=== PATIENT | male | born 1955 | race American Indian/Alaskan Native ===

== ENCOUNTER 2020-07-05 05:22 | Day surgery (SDC) | payer OTHER ==
[2020-07-04 18:13] VITALS: BMI 25.8
--- NOTE | 2020-07-05 07:38 | HP ---
History & Physical Update - History History: No Change - Physical Physical: No Change - Assessment Assessment: No Change - Plan Plan: No Change
--- NOTE | 2020-07-05 07:39 | OP ---
Operative Note - Note: Operative Date: 07/05/20 Pre-Operative Diagnosis: R renal calculi Operation: R ureteroscopic laser lithotripsy and JJ stent insertion Findings: R renal calculi Post-Operative Diagnosis: Same as Pre-op Surgeon: Manohar Watt Anesthesiologist/STEWARD/[employer]: Amol Jenkins Anesthesia: General Estimated Blood Loss (mls): 0 Drains & Tubes with Location: 6 fr 26 cm R JJ stent Operative Report Dictated: Yes
[2020-07-05] MEDS ORDERED: ceFAZolin SODIUM 1 GM VIAL IVPB ONE (10:22)
[2020-07-05] MEDS ORDERED: MIDAZOLAM HCL 2 MG/2 ML SINGLE DOSE VIAL ONE (10:30)
[2020-07-05] MEDS ORDERED: ROCURONIUM BROMIDE 50 MG/5 ML SYRINGE ONE (10:30)
[2020-07-05] MEDS ORDERED: PROPOFOL 20 ML ONE (10:30)
[2020-07-05] MEDS ORDERED: NEOSTIGMINE METHYLSULFATE 0.5 MG/1 ML - 10 ML MDV ONE (11:05)
[2020-07-05] MEDS ORDERED: GLYCOPYRROLATE 0.2 MG/1 ML VIAL ONE ×2 (11:05)
[2020-07-05] MEDS ORDERED: ONDANSETRON 4 MG/2 ML VIAL IVPUSH PRN (11:44)
[2020-07-05] MEDS ORDERED: oxyCODONE HCL 5 MG TABLET PO PRN (11:44)
[2020-07-05] MEDS ORDERED: LACTATED RINGERS SOLUTION 1,000 ML IV SCH (11:45)
[2020-07-05] MEDS ORDERED: oxyCODONE HCL 5 MG TABLET ONE (13:53)
--- NOTE | 2020-07-05 13:55 | OP ---
DATE OF OPERATION: 07/05/2020 PREOPERATIVE DIAGNOSIS: Right renal calculus. POSTOPERATIVE DIAGNOSIS: Right renal calculus. PROCEDURE: Right ureteroscopic laser lithotripsy, right double-J stent insertion. SURGEON: Manohar Atkinson MD BENEFIT SPECIALIST: None. ANESTHESIA: General via endotracheal tube. ANESTHESIOLOGIST: Aoml Jenkins MD SPECIMENS: Right renal calculus. CULTURES: None. DRAINS: A 6-Sinhala 26-cm right double-J stent. ESTIMATED BLOOD LOSS: None. COMPLICATIONS: None. DESCRIPTION OF PROCEDURE: Patient was brought into the operating room, placed on the operating table in supine position. After administration of general anesthesia via endotracheal tube, intravenous antibiotics were administered. Sequential compression devices were placed. Patient placed in dorsal lithotomy position. The genitals and perineum were prepped and draped in the usual sterile manner. A 22-Sinhala cystoscope was inserted into the bladder under direct vision. Anterior and posterior urethra was normal. The bladder was entered. Urine was evacuated. Cystoscopy was performed. This demonstrated no foreign bodies, tumors, stones, inflammation. Both ureteral orifices were in their usual location with clear efflux bilaterally. Right ureteral orifice was cannulated with a 0.038 guidewire, advanced to the level of the right renal pelvis under fluoroscopic guidance. The dual-lumen catheter was inserted, a retrograde pyelogram was done, demonstrated a bifid collecting system and small filling defect in the middle calyx. Now a Super Stiff guidewire was inserted, dual-lumen catheter was removed. Ureteral access sheath was now inserted with the navigator up to the renal pelvis. Now the flexible ureteroscope was inserted up to the level of the kidney. Pyeloscopy was done. A right middle calyceal calculus was identified, and using the 200-micron laser fiber, laser lithotripsy was done until it was fragmented into small enough piece to be basketed, which was then done. It was basketed and removed. Reinspection of the entire renal collecting system demonstrated no additional stones, no bleeding. Ureteroscope was removed, cystoscope backloaded. Retrograde pyelogram was done, demonstrated no additional stones, no extravasation of contrast. Now 6-Sinhala 26-cm right double-J stent was inserted over the guidewire under direct visual and fluoroscopic guidance, leaving 1 coil in the renal pelvis and 1 coil in the bladder. Tolerated the procedure well. Bladder was emptied. The stent was secured to the penis with a suture and a Tegaderm. Was transferred to the recovery room in stable condition, to be followed up in the office in 2 days for stent removal. MANOHAR ATKINSON M.D. [id number]
[2020-07-05 16:23] VITALS: BP 149/72; PULSE 69; TEMP 97.1
--- NOTE | 2020-07-06 18:44 | PATH ---
Surgical Pathology Report Patient Name: HARDEEP CALIX Med. Rec. #: [id number] /Age/Gender: 1955 (Age: 65) / M Account: [id number] Location: [facility] SURGICAL Taken: 07/04/2020 Received: 07/05/2020 Reported: 07/06/2020 Physicians: Manohar Watt M.D. Specimen(s) Received KIDNEY STONE Clinical History Calculus of ureter Final Diagnosis KIDNEY STONE, REMOVAL: RENAL CALCULI. MACROSCOPIC DIAGNOSIS. Electronically Signed Leticia Delatorre M.D. Gross Description Received fresh labeled "kidney stone," is a 0.3 cm in greatest dimension smiley mims, irregular calculus which is sent for chemical analysis. /07/05/2020 saudi/07/05/2020
[2020-07-15 13:59] LABS: CA OXALATE MONOHYDR. 80; SIZE 3X2 mm; WEIGHT 17 mg
== END 2020-07-05 15:10 | disposition home or self-care (01) ==
LOC: JASU-SURG 05:22
PROVIDERS: ATTEND Urology
PROC: 0TF38ZZ Fragmentation in Right Kidney Pelvis, Via Natural or Artificial Opening Endoscopic (ICD-10-PCS; principal; 2020-07-05 09:00)
PROC: 0T768DZ Dilation of Right Ureter with Intraluminal Device, Via Natural or Artificial Opening Endoscopic (ICD-10-PCS; 2020-07-05 09:00)
DX: N20.0 Calculus of kidney (principal); I10 Essential (primary) hypertension; E11.9 Type 2 diabetes mellitus without complications; Z79.84 Long term (current) use of oral hypoglycemic drugs
CPT/HCPCS: 36415; 76000-TC-FY; 82360; 82962; 88300-TC; 94760

== ENCOUNTER 2020-07-06 11:57 | Inpatient (IN) | payer OTHER ==
[2020-07-06] MEDS ORDERED: ACETAMINOPHEN 1000 MG/100 ML VIAL (NON FORMULARY) IVPB ONE (13:02)
[2020-07-06] MEDS ORDERED: SODIUM CHLORIDE 1,000 ML IV STA ×2 (13:02→17:25)
[2020-07-06] MEDS ORDERED: ACETAMINOPHEN INJECTION 100 ML IVPB ONE (13:28)
[2020-07-06 14:03] LABS: BASO % 0.2 % (0-2.0); HEMATOCRIT 39.2 % (35.4-49); HEMOGLOBIN 12.8 GM/dL (11.7-16.9); LYMPH % 2.5 % (8-40); MCH 27.1 pg (25.7-33.7); MCHC 32.6 g/dl (32.0-35.9); MEAN CELL VOLUME 83.1 fl (80-96); MONO % 8.3 % (3.8-10.2); PLATELET COUNT 278 K/MM3 (134-434); RBC 4.71 M/mm3 (4.00-5.60); RDW 15.2 % (11.9-15.9)
[2020-07-06 14:05] LABS: WHITE BLOOD COUNT 31.1 K/mm3 (4.0-10.0)
[2020-07-06] MEDS ORDERED: PIPERACILLIN/TAZOB 4.5 GM 4.5 GM/100 ML BAG IVPB ONE ×2 (14:08→14:21)
[2020-07-06] MEDS ORDERED: VANCOMYCIN 1 GM in D5W (PRE-DOCKED) 1,000 MG/250 ML IVPB ONE (14:08)
--- NOTE | 2020-07-06 14:09 | PDOC ---
Documentation entered by Jeff Green SCRIBE, acting as scribe for Raymond Chase MD. Raymond Chase MD: This documentation has been prepared by the ericibe, Jeff Green SCRIBE, under my direction and personally reviewed by me in its entirety. I confirm that the documentation accurately reflects all work, treatment, procedures, and medical decision making performed by me. 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 The patient is alert but cannot speak due to stroke, so his at bedside served as a historian. He was found on the floor after the fall last night and his family helped him stand. The reports had a fever (temperature at home 100.7) and headache that began last night. notes that he has been coughing as well. Of note, pt is POD #1 s/p right ureteroscopic laser lithotripsy and JJ stent insertion for a right renal calculi by Dr. Watt. The patient denies chest/abdominal/back pain, and shortness of breath. Denies chills, nausea, vomiting, and/or any GI symptoms. Denies any other symptoms. Allergies: shellfish derived Surgical Hx: ESWL R, BPH, R ureteroscopic laser lithotripsy and JJ stent inserti on PCP: Dr. Barrientos Urologist: Dr. Watt Past History - Medical History Allergies/Adverse Reactions: Allergies Allergy/AdvReac Type Severity Reaction Status Date / Time shellfish derived Allergy Verified 07/06/20 12:09 Home Medications: Ambulatory Orders Amlodipine Besylate 10 mg PO DAILY 03/01/20 Aspirin 81 mg PO DAILY 03/01/20 Calcium Carbonate [Calcium] 500 mg PO DAILY 03/01/20 Cholecalciferol (Vitamin D3) [Vitamin D -] 400 unit PO DAILY 03/01/20 Metformin HCl [Glucophage] 500 mg PO BID 03/01/20 Bypro-3 Fatty Acids/Fish Oil [Fish Oil 1,000 mg Capsule] 1 each PO DAILY 03/01/20 Simvastatin 20 mg PO HS 03/01/20 Tamsulosin HCl 0.4 mg PO DAILY 03/01/20 Dextrin [Fiber] 350 gm PO DAILY 07/04/20 Docusate Sodium [Colace] 100 mg PO DAILY 07/04/20 Carvedilol [Coreg -] 12.5 mg PO BID #60 tablet 07/20/20 Chlorthalidone [Hygroton -] 12.5 mg PO DAILY #30 tablet 07/20/20 Anemia: No Asthma: No Cancer: No Cardiac Disorders: No CVA: Yes (2013 RIGHT SIDE WEAKNESS) COPD: No CHF: No Dementia: No Diabetes: Yes (NIDDM) GI Disorders: No Disorders: Yes (KIDNEY STONES) HTN: Yes Hypercholesterolemia: Yes Liver Disease: No Seizures: No Thyroid Disease: No - Psycho-Social/Smoking History Smoking History: Never smoked Have you smoked in the past 12 months: No Information on smoking cessation initiated: No - Substance Abuse Hx (Audit-C & DAST Scrn) How often the patient has a drink containing alcohol: Never Score: In Men: 4 or > Positive; In Women: 3 or > Positive: 0 Screen Result (Pos requires Nsg. Audit-10AR): Negative In the last yr the pt used illegal drug/Rx for NonMed reason: No Score: Yes response is considered Positive: 0 Screen Result (Positive result requires Nsg. DAST-10): Negative Review of Systems - Review of Systems Able to Perform ROS?: Yes Comments:: 07/06/20 13:10 GENERAL/CONSTITUTIONAL: + fever, weakness HEAD, EYES, EARS, NOSE AND THROAT: +headache No change in vision. No ear pain or discharge. CARDIOVASCULAR: + chest pain no shortness of breath, no loss of consciousness RESPIRATORY: + cough, No wheezing, or hemoptysis. GASTROINTESTINAL: No nausea, vomiting, diarrhea or constipation. GENITOURINARY: No dysuria, frequency. MUSCULOSKELETAL: No joint or muscle swelling or pain. No neck or back pain. SKIN: No rash NEUROLOGIC: No vertigo, no change in strength/sensation. ENDOCRINE: No increased thirst. No abnormal weight change. HEMATOLOGIC/LYMPHATIC: No anemia, easy bleeding, or history of blood clots. ALLERGIC/IMMUNOLOGIC: No hives or skin allergy. *Physical Exam - Vital Signs Last Vital Signs Temp Pulse Resp BP Pulse Ox 100 F H 94 H 18 105/62 94 L 07/06/20 12:04 07/06/20 12:04 07/06/20 12:04 07/06/20 12:04 07/06/20 12:04 - Physical Exam 07/06/20 12:51 "GENERAL: Awake, alert, and fully oriented, in no acute distress. HEAD: No signs of trauma EYES: PERRLA, EOMI, sclera anicteric, conjunctiva clear ENT: Auricles normal inspection, hearing grossly normal, nares patent, orop harynx clear without exudates. Moist mucosa NECK: Nontender, no stepoffs, Normal ROM, supple, no lymphadenopathy, JVD, or masses LUNGS: Breath sounds equal, clear to auscultation bilaterally. No wheezes, and no crackles HEART: Regular rate and rhythm, normal S1 and S2, no murmurs, rubs or gallops ABDOMEN: Soft, nontender, normoactive bowel sounds. No guarding, no rebound. No masses EXTREMITIES: Normal range of motion, no edema. No clubbing or cyanosis. No cords, erythema, or tenderness NEUROLOGICAL: Cranial nerves II through XII intact. 5/5 strength and sensation in all extremities SKIN: Warm, Dry, normal turgor, no rashes or lesions noted." ED Treatment Course - LABORATORY CBC & Chemistry Diagram: 07/20/20 06:52 07/20/20 13:16 Medical Decision Making - Critical Care Time Total Critical Care Time (minutes): 30 Critical Care Statement: The care of this patient involved high complexity decision making to prevent further life threatening deterioration of the patient's condition and/or to evaluate & treat vital organ system(s) failure or risk of failure. - Medical Decision Making 07/06/20 14:18 65 M with weakness and fall last night. Febrile in ED, with new hypoxia. Suspect PNA. - Labs - Cultures - CXR - CT head/c-spine - CTAP 07/06/20 19:06 Labs notable for WBC 33 UA consistent with UTI Consult placed for Dr. Watt Pt started on vanc/zosyn 07/06/20 19:16 Pt admitted to hospitalist Discharge - Discharge Information Problems reviewed: Yes Clinical Impression/Diagnosis: Sepsis, UTI (urinary tract infection) Condition: Improved Disposition: VNS/HOME HEALTH CARE - Admission Yes - Follow up/Referral - Patient Discharge Instructions - Post Discharge Activity
[2020-07-06 14:10] LABS: INR 1.24 (0.83-1.09); PROTHROMBIN TIME (PATIENT) 14.7 SEC (9.7-13.0)
[2020-07-06 14:12] LABS: ACTIVATED PTT 29.7 SECONDS (25.2-36.5)
[2020-07-06] MEDS ORDERED: VANCOMYCIN 1 GRAM (PRE-DOCKED) 1,000 MG/250 ML BAG IVPB ONE (14:21)
[2020-07-06 14:34] LABS: BILIRUBIN,TOTAL 0.4 mg/dL (0.2-1); BLOOD UREA NITROGEN 21.3 mg/dL (7-18); CALCIUM 9.4 mg/dL (8.5-10.1); CREATININE 2.1 mg/dL (0.55-1.3); POTASSIUM 4.6 mmol/L (3.5-5.1); TOT PROT 6.6 g/dl (6.4-8.2)
[2020-07-06 18:15] LABS: EPI CELLS 11 /uL (0-25.1); HYALINE CASTS 3 /uL (0-3.1); PH,URINE 5.5 (5.0-8.0); URINE APPEARANCE TURBID; URINE BACTERIA 158 /uL (0-1359); URINE BILIRUBIN NEGATIVE (NEGATIVE); URINE COLOR YELLOW; URINE GLUCOSE (UA) TRACE (NEGATIVE); URINE KETONE TRACE (NEGATIVE); URINE LEUK ESTERASE 2+ (NEGATIVE); URINE NITRITE NEGATIVE (NEGATIVE); URINE PROTEIN 4+ (NEGATIVE); URINE RBC 542 /uL (0-23.9); URINE UROBILINOGEN 0.2 mg/dL (0.2-1.0); URINE WBC 1863 /uL (0-25.8)
--- NOTE | 2020-07-06 19:55 | PN ---
Teaching Attending Note Name of Resident: Divine Hunt ATTENDING PHYSICIAN STATEMENT I saw and evaluated the patient. I reviewed the resident's note and discussed the case with the resident. I agree with the resident's findings and plan as documented. SUBJECTIVE: 65yoM with h/o CVA 2013 with residual right sided hemiparesis and expressive aphasia, kidney stones, HTN, HLD, T2DM, and BPH currently POD1 from lithotripsy and right double J ureteral stent insertion who presents with fever, generalized weakness, and unwitnessed fall. Patient underwent uncomplicated procedure 07/[address] Watt. That evening he developed a temperature of 100.7F and per he has been coughing and had a headache as well. Patient is currently complaining of generalized body aches including chest pain and suprapubic pain. Nods yes that he has been experiencing palpitations but none currently. Denies nausea, vomiting, diarrhea, SOB. Labs notable for WBC 31.1 with 5% bands, creatinine 2.1 from baseline which appears to be around 1.1, and lactic acid 3.1. UA positive for leukocyte esterases and pyuria. CT abd/pelvis showed right ureteral stent, mild-moderate right nephromegaly and minimal hydronephrosis with prenephric soft tissue stranding, and nonobstructing renal calculi. CT chest showed bibasilar atelectasis vs scarring, RML nodule, and prominent mediastinal lymph node but no definite consolidation. CT head and C-spine without acute findings. ED consulted Dr. Watt. Patient received 2L NS bolus and empiric vancomycin and Zosyn. OBJECTIVE: Vital Signs - 24 hr 07/06/20 12:04 Temperature 100 F H Pulse Rate 94 H Respiratory 18 Rate Blood Pressure 105/62 O2 Sat by Pulse 94 L Oximetry (%) EXAM Gen: awake, alert, uncomfortable appearing but in no acute distress HEENT: NC/AT CV: RRR, tachycardic, no MRG. Chest pain reproducible to palpation Resp: Faint crackle left base. Tachypneic without accessory muscle use Abd: Distended, mild tenderness to palpation worst in suprapubic area, no rebound/guarding Ext: no edema Neuro: Expressive aphasia, nods yes/no appropriately to direct questions. Follows commands. Strength 0/5 RUE and RLE, 4/5 left extremities Psych: appropriate mood/affect Laboratory Results - last 24 hr 07/06/20 07/06/20 07/06/20 13:06 13:18 13:18 WBC RBC Hgb Hct MCV MCH MCHC RDW Plt Count MPV Absolute Neuts (auto) Total Counted Neutrophils % Neutrophils % (Manual) Band Neutrophils % Lymphocytes % Lymphocytes % (Manual) Monocytes % Monocytes % (Manual) Eosinophils % Basophils % Myelocytes % (Man) Nucleated RBC % PT with INR 14.70 H INR 1.24 H PTT (Actin FS) 29.7 Sodium Potassium Chloride Carbon Dioxide Anion Gap BUN Creatinine Est GFR (CKD-EPI)AfAm Est GFR (CKD-EPI)NonAf Random Glucose Lactic Acid 3.8 H* Calcium Total Bilirubin AST ALT Alkaline Phosphatase Troponin I < 0.02 Total Protein Albumin Urine Color Urine Appearance Urine pH Ur Specific [place] Urine Protein Urine Glucose (UA) Urine Ketones Urine Blood Urine Nitrite Urine Bilirubin Urine Urobilinogen Ur Leukocyte Esterase Urine WBC (Auto) Urine RBC (Auto) Urine Casts (Auto) U Epithel Cells (Auto) Urine Bacteria (Auto) 07/06/20 07/06/20 07/06/20 13:18 13:18 17:00 WBC 31.1 H* RBC 4.71 Hgb 12.8 Hct 39.2 MCV 83.1 MCH 27.1 MCHC 32.6 RDW 15.2 Plt Count 278 MPV 8.0 Absolute Neuts (auto) 27.7 H Total Counted 100 Neutrophils % 89.0 H Neutrophils % (Manual) 75.0 Band Neutrophils % 5.0 Lymphocytes % 2.5 L Lymphocytes % (Manual) 4.0 L Monocytes % 8.3 Monocytes % (Manual) 10 Eosinophils % 0.0 Basophils % 0.2 Myelocytes % (Man) 6 H Nucleated RBC % 0 PT with INR INR PTT (Actin FS) Sodium 135 L Potassium 4.6 Chloride 100 Carbon Dioxide 24 Anion Gap 11 BUN 21.3 H Creatinine 2.1 H Est GFR (CKD-EPI)AfAm 36.65 Est GFR (CKD-EPI)NonAf 31.62 Random Glucose 152 H Lactic Acid 3.1 H* Calcium 9.4 Total Bilirubin 0.4 AST 17 ALT 17 Alkaline Phosphatase 79 Troponin I Total Protein 6.6 Albumin 3.0 L Urine Color Urine Appearance Urine pH Ur Specific [place] Urine Protein Urine Glucose (UA) Urine Ketones Urine Blood Urine Nitrite Urine Bilirubin Urine Urobilinogen Ur Leukocyte Esterase Urine WBC (Auto) Urine RBC (Auto) Urine Casts (Auto) U Epithel Cells (Auto) Urine Bacteria (Auto) 07/06/20 17:15 WBC RBC Hgb Hct MCV MCH MCHC RDW Plt Count MPV Absolute Neuts (auto) Total Counted Neutrophils % Neutrophils % (Manual) Band Neutrophils % Lymphocytes % Lymphocytes % (Manual) Monocytes % Monocytes % (Manual) Eosinophils % Basophils % Myelocytes % (Man) Nucleated RBC % PT with INR INR PTT (Actin FS) Sodium Potassium Chloride Carbon Dioxide Anion Gap BUN Creatinine Est GFR (CKD-EPI)AfAm Est GFR (CKD-EPI)NonAf Random Glucose Lactic Acid Calcium Total Bilirubin AST ALT Alkaline Phosphatase Troponin I Total Protein Albumin Urine Color Yellow Urine Appearance Turbid Urine pH 5.5 Ur Specific [place] 1.021 Urine Protein 4+ H Urine Glucose (UA) Trace Urine Ketones Trace H Urine Blood 3+ H Urine Nitrite Negative Urine Bilirubin Negative Urine Urobilinogen 0.2 Ur Leukocyte Esterase 2+ H Urine WBC (Auto) 1863 Urine RBC (Auto) 542 Urine Casts (Auto) 3 U Epithel Cells (Auto) 11 Urine Bacteria (Auto) 158 Imaging and EKG reviewed in chart ASSESSMENT AND PLAN: 65yoM with h/o CVA 2013 with residual right sided weakness and aphasia, kidney stones, HTN, HLD, T2DM, and BPH currently POD1 from lithotripsy and right double J ureteral stent insertion who presents with fever, generalized weakness, and unwitnessed fall admitted with severe sepsis likely secondary to complicated UTI. Severe sepsis secondary to complicated UTI Fever, leukocytosis, WALI, elevated lactic 3.8 -> 3.1 s/p lithotripsy with ureteral stent insertion 07/05 UA grossly positive Medication list includes Bactrim, unclear duration s/p 2L NS bolus and vancomycin and Zosyn in ED - f/u urine and blood cultures - continue empiric Zosyn, vancomycin - rpt lactic - continue hydration - urology consult appreciated - ID consult WALI Baseline creatinine appears to be around 1.1, currently 2.1 In setting of severe sepsis as above as well as recent urologic procedure CT showing mild right hydronephrosis but no obstructing stones - hold nephrotoxic meds - monitor UOP - trend renal function Generalized weakness, unwitnessed fall In setting of severe sepsis CT head and C-spine without acute findings No new neuro deficits from baseline Given complaint of palpitations, will monitor on telemetry - tele - troponins - PT consult RML lung nodule and mediastinal lymph nodes Incidental finding on CT chest - 0.3cm RML pulmonary nodule - 3mo f/u CT recommended by radiology HTN: Hold amlodipine for now, resume as tolerated. Continue metoprolol. T2DM: hold oral medications; ISS BPH: continue tamsulosin h/o CVA: continue aspirin, simvastatin DVT ppx: heparin subq
--- NOTE | 2020-07-06 20:07 | HP ---
CHIEF COMPLAINT: Unwitnessed fall, fever, chills PCP: Marvin Barrientos HISTORY OF PRESENT ILLNESS: Mr. Glover is a 65 year old man POD1 following uteroscopic laser lithotripsy and stent insertion for R renal calculi, with PMH CVA (non-verbal), hypertension, NIDDM who presents to ED after unwitnessed fall yesterday night. Patient's reports he was febrile (100.7). Patient communicating via gestures -- communicating that he began experiencing chills and diffuse body aches after the recent procedure, along with weakness, which led to an unwitnessed fall last night. This prompted his to call EMS. Patient reports 2 episodes of urinary incontinence. He denies headache, chest pain, palpitations, abdominal pain, vomiting, diarrhea. ER course was notable for: (1) Lactic acid 3.8 --> trended down to 3.1 (2) Leukocytosis (3) WALI (Cr. 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 ; residual right sided weakness ambulating with walker at baseline PAST SURGICAL HISTORY: POD1 following uteroscopic laser lithotripsy with stent placement Kidney stones Hypertension NIDDM Social History: Smoking: NO Alcohol:NO Drugs: NO Allergies shellfish derived Allergy (Verified 07/06/20 12:09) HOME MEDICATIONS: Home Medications Medication Instructions Recorded Amlodipine Besylate 10 mg PO DAILY 03/01/20 Aspirin 81 mg PO DAILY 03/01/20 Calcium Carbonate [Calcium] 500 mg PO DAILY 03/01/20 Cholecalciferol (Vitamin D3) 400 unit PO DAILY 03/01/20 [Vitamin D3 -] Losartan Potassium 50 mg PO DAILY 03/01/20 Metformin HCl [Glucophage] 500 mg PO BID 03/01/20 Metoprolol Succinate 50 mg PO DAILY 03/01/20 Nortriptyline HCl [Pamelor -] 25 mg PO DAILY 03/01/20 [place]-3 Fatty Acids/Fish Oil [Fish 1 each PO DAILY 03/01/20 Oil 1,000 mg Capsule] Pantoprazole Sodium [Protonix -] 20 mg PO DAILY 03/01/20 Simvastatin 20 mg PO HS 03/01/20 Tamsulosin HCl 0.4 mg PO DAILY 03/01/20 Oxycodone HCl/Acetaminophen 1 each PO Q4H PRN 7 Days #42 03/29/20 [Oxycodon-Acetaminophen 7.5-325] tablet MDD 6 Dextrin [Fiber] 350 gm PO DAILY 07/04/20 Docusate Sodium [Colace] 100 mg PO DAILY 07/04/20 Ketorolac Tromethamine [Toradol] 10 mg PO Q6H #28 tablet 07/05/20 Sulfamethoxazole/Trimethoprim 1 tab PO BID #14 tablet 07/05/20 [Bactrim Ds -] REVIEW OF SYSTEMS See HPI PHYSICAL EXAMINATION Vital Signs - 24 hr 07/06/20 12:04 Temperature 100 F H Pulse Rate 94 H Respiratory 18 Rate Blood Pressure 105/62 O2 Sat by Pulse 94 L Oximetry (%) GENERAL: Awake, alert, and fully oriented, generalized body shakes HEAD: Normal with no signs of trauma. EYES: Pupils equal, round and reactive to light, extraocular movements intact, sclera anicteric, conjunctiva clear. EARS, NOSE, THROAT: Ears normal, nares patent, oropharynx clear without exudates. Moist mucous membranes. NECK: Normal range of motion, supple without lymphadenopathy LUNGS: Breath sounds equal, clear to auscultation bilaterally. No wheezes, and no crackles. Tachypnic with accessory muscle use. HEART: Regular rate and rhythm, normal S1 and S2 without murmur, rub or gallop. ABDOMEN: Distended, mild tenderness to palpation across all quadrants. normoactive bowel sounds, no guarding, no rebound, no masses. MUSCULOSKELETAL: Normal range of motion at all joints. No bony deformities or tenderness. No CVA tenderness. NEUROLOGICAL: Alert, communicating via gestures PSYCHIATRIC: Cooperative. Good eye contact. Appropriate mood and affect. SKIN: Warm, dry, normal turgor, no rashes or lesions noted Laboratory Results - last 24 hr 07/06/20 07/06/20 07/06/20 13:06 13:18 13:18 WBC RBC Hgb Hct MCV MCH MCHC RDW Plt Count MPV Absolute Neuts (auto) Total Counted Neutrophils % Neutrophils % (Manual) Band Neutrophils % Lymphocytes % Lymphocytes % (Manual) Monocytes % Monocytes % (Manual) Eosinophils % Basophils % Myelocytes % (Man) Nucleated RBC % PT with INR 14.70 H INR 1.24 H PTT (Actin FS) 29.7 Sodium Potassium Chloride Carbon Dioxide Anion Gap BUN Creatinine Est GFR (CKD-EPI)AfAm Est GFR (CKD-EPI)NonAf Random Glucose Lactic Acid 3.8 H* Calcium Total Bilirubin AST ALT Alkaline Phosphatase Troponin I < 0.02 Total Protein Albumin Urine Color Urine Appearance Urine pH Ur Specific [place] Urine Protein Urine Glucose (UA) Urine Ketones Urine Blood Urine Nitrite Urine Bilirubin Urine Urobilinogen Ur Leukocyte Esterase Urine WBC (Auto) Urine RBC (Auto) Urine Casts (Auto) U Epithel Cells (Auto) Urine Bacteria (Auto) 07/06/20 07/06/20 07/06/20 13:18 13:18 17:00 WBC 31.1 H* RBC 4.71 Hgb 12.8 Hct 39.2 MCV 83.1 MCH 27.1 MCHC 32.6 RDW 15.2 Plt Count 278 MPV 8.0 Absolute Neuts (auto) 27.7 H Total Counted 100 Neutrophils % 89.0 H Neutrophils % (Manual) 75.0 Band Neutrophils % 5.0 Lymphocytes % 2.5 L Lymphocytes % (Manual) 4.0 L Monocytes % 8.3 Monocytes % (Manual) 10 Eosinophils % 0.0 Basophils % 0.2 Myelocytes % (Man) 6 H Nucleated RBC % 0 PT with INR INR PTT (Actin FS) Sodium 135 L Potassium 4.6 Chloride 100 Carbon Dioxide 24 Anion Gap 11 BUN 21.3 H Creatinine 2.1 H Est GFR (CKD-EPI)AfAm 36.65 Est GFR (CKD-EPI)NonAf 31.62 Random Glucose 152 H Lactic Acid 3.1 H* Calcium 9.4 Total Bilirubin 0.4 AST 17 ALT 17 Alkaline Phosphatase 79 Troponin I Total Protein 6.6 Albumin 3.0 L Urine Color Urine Appearance Urine pH Ur Specific [place] Urine Protein Urine Glucose (UA) Urine Ketones Urine Blood Urine Nitrite Urine Bilirubin Urine Urobilinogen Ur Leukocyte Esterase Urine WBC (Auto) Urine RBC (Auto) Urine Casts (Auto) U Epithel Cells (Auto) Urine Bacteria (Auto) 07/06/20 17:15 WBC RBC Hgb Hct MCV MCH MCHC RDW Plt Count MPV Absolute Neuts (auto) Total Counted Neutrophils % Neutrophils % (Manual) Band Neutrophils % Lymphocytes % Lymphocytes % (Manual) Monocytes % Monocytes % (Manual) Eosinophils % Basophils % Myelocytes % (Man) Nucleated RBC % PT with INR INR PTT (Actin FS) Sodium Potassium Chloride Carbon Dioxide Anion Gap BUN Creatinine Est GFR (CKD-EPI)AfAm Est GFR (CKD-EPI)NonAf Random Glucose Lactic Acid Calcium Total Bilirubin AST ALT Alkaline Phosphatase Troponin I Total Protein Albumin Urine Color Yellow Urine Appearance Turbid Urine pH 5.5 Ur Specific [place] 1.021 Urine Protein 4+ H Urine Glucose (UA) Trace Urine Ketones Trace H Urine Blood 3+ H Urine Nitrite Negative Urine Bilirubin Negative Urine Urobilinogen 0.2 Ur Leukocyte Esterase 2+ H Urine WBC (Auto) 1863 Urine RBC (Auto) 542 Urine Casts (Auto) 3 U Epithel Cells (Auto) 11 Urine Bacteria (Auto) 158 ASSESSMENT/PLAN: Mr. Glover is a 65 year old man with PMH CVA (as a result non-verbal), htn, diabetes, POD1 following uteroscopic laser lithotripsy with stent insertion for R renal calculi who presents after unwitnessed fall with fever, leukocytosis, elevated lactic acid, and UTI/ imaging consistent with pyelonephritis. # Severe sepsis secondary to UTI - Presented with fever, leukocytosis, tachycardia - Lactic trending down (last lab at 1.7) - Started on Vanc Zosyn in ED - ID consulted - Awaiting blood and urine culture # Unwitnessed fall - Mechanical vs. Syncope - Admitted to telemetry - Consider ECHO # WALI - Creatinine elevated at 2.1 - Likely combination of pre-renal, intrinsic, and post- renal etiology - Avoid NSAIDS and other nephrotoxic drugs during this admission # Diabetes - Hold metformin during admission - On sliding scale # Incidentally found lung nodule - Found on today's CXT - Advise follow up at discharge DVT prophylaxis: Heparin FEN ns at 100 mls/hr Monitor electrolytes Diabetic/low sodium diet Dispo: admit to telemetry FULL CODE Family Medical History Family History: As Documented Visit type - Medication Review Med list reviewed for High Risk Meds patients 65 and older: Yes - Emergency Visit Emergency Visit: No - New Patient This patient is new to me today: Yes Date on this admission: 07/07/20 - Critical Care Critical Care patient: No ATTENDING PHYSICIAN STATEMENT I saw and evaluated the patient. I reviewed the resident's note and discussed the case with the resident. I agree with the resident's findings and plan as documented. SUBJECTIVE: OBJECTIVE: ASSESSMENT AND PLAN:
[2020-07-06] MEDS: ACETAMINOPHEN 1000 MG/100 ML VIAL (NON FORMULARY) IVPB PRN (22:56)
[2020-07-06] MEDS: INSULIN SLIDING SCALE (NOVOLOG) 1 VIAL SQ SCH (23:01)
[2020-07-06] MEDS: SODIUM CHLORIDE 1,000 ML IV SCH (23:01)
[2020-07-07] MEDS: SODIUM CHLORIDE 1,000 ML IV SCH ×2 (01:22→14:49)
[2020-07-07] MEDS: HEPARIN NA (PORCINE) 5,000 UNITS/ML 1ML VIAL SQ SCH ×3 (06:28→21:22)
[2020-07-07] MEDS: INSULIN SLIDING SCALE (NOVOLOG) 1 VIAL SQ SCH ×4 (06:28→21:23)
[2020-07-07 08:21] LABS: BASO % 0.5 % (0-2.0); HEMOGLOBIN 12.2 GM/dL (11.7-16.9); LYMPH % 2.7 % (8-40); MCH 26.5 pg (25.7-33.7); MCHC 32.2 g/dl (32.0-35.9); MEAN CELL VOLUME 82.5 fl (80-96); MONO % 5.4 % (3.8-10.2); NEUT % 91.4 % (42.8-82.8); PLATELET COUNT 270 K/MM3 (134-434); RDW 15.6 % (11.9-15.9)
[2020-07-07 08:31] LABS: BLOOD UREA NITROGEN 25.6 mg/dL (7-18); CALCIUM 8.2 mg/dL (8.5-10.1); CREATININE 2.2 mg/dL (0.55-1.3); MAGNESIUM 1.8 mg/dL (1.8-2.4); PHOSPHOROUS 3.2 mg/dL (2.5-4.9)
[2020-07-07 10:02] LABS: ANISOCYTOSIS 1+; MACROCYTOSIS 0; PLATELET ESTIMATE NORMAL
--- NOTE | 2020-07-07 10:31 | CON.GU ---
Consult Consult Specialty:: Reason for Consultation:: UTI - History of Present Illness Chief Complaint: fever, body aches History of Present Illness: 65 year old man POD1 following uteroscopic laser lithotripsy and stent insertion for R renal calculi, with PMH CVA (non-verbal), hypertension, NIDDM who presents to ED after unwitnessed fall yesterday night. Patient's reports he was febrile (100.7). Patient communicating via gestures -- communi cating that he began experiencing chills and diffuse body aches after the recent procedure, along with weakness, which led to an unwitnessed fall last night. This prompted his to call EMS. Patient reports 2 episodes of urinary incontinence. He denies headache, chest pain, palpitations, abdominal pain, vomiting, diarrhea. cons req. ER course was notable for: (1) Lactic acid 3.8 --> trended down to 3.1 (2) Leukocytosis (3) WALI (Cr. elevated at 2.1) (4) Urinalysis consistent with UTI (5) CT abdomen pelvis showing stent in place with mild hydronephrosis with perinephric tissue stranding - History Source History Provided By: Family Member, Medical Record - Past Medical History Renal/: Yes: Hematuria, Renal Calculi, UTI - Alcohol/Substance Use Hx Alcohol Use: No - Smoking History Smoking history: Never smoked Have you smoked in the past 12 months: No Home Medications - Allergies Allergies/Adverse Reactions: Allergies Allergy/AdvReac Type Severity Reaction Status Date / Time shellfish derived Allergy Verified 07/06/20 12:09 - Home Medications Home Medications: Ambulatory Orders Amlodipine Besylate 10 mg PO DAILY 03/01/20 Aspirin 81 mg PO DAILY 03/01/20 Calcium Carbonate [Calcium] 500 mg PO DAILY 03/01/20 Cholecalciferol (Vitamin D3) [Vitamin D3 -] 400 unit PO DAILY 03/01/20 Losartan Potassium 50 mg PO DAILY 03/01/20 Metformin HCl [Glucophage] 500 mg PO BID 03/01/20 Metoprolol Succinate 50 mg PO DAILY 03/01/20 Nortriptyline HCl [Pamelor -] 25 mg PO DAILY 03/01/20 [place]-3 Fatty Acids/Fish Oil [Fish Oil 1,000 mg Capsule] 1 each PO DAILY 03/01/20 Pantoprazole Sodium [Protonix -] 20 mg PO DAILY 03/01/20 Simvastatin 20 mg PO HS 03/01/20 Tamsulosin HCl 0.4 mg PO DAILY 03/01/20 Oxycodone HCl/Acetaminophen [Oxycodon-Acetaminophen 7.5-325] 1 each PO Q4H PRN 7 Days #42 tablet MDD 6 03/29/20 Dextrin [Fiber] 350 gm PO DAILY 07/04/20 Docusate Sodium [Colace] 100 mg PO DAILY 07/04/20 Ketorolac Tromethamine [Toradol] 10 mg PO Q6H #28 tablet 07/05/20 Sulfamethoxazole/Trimethoprim [Bactrim Ds -] 1 tab PO BID #14 tablet 07/05/20 Review of Systems - Review of Systems Genitourinary: reports: Flank Pain Physical Exam- Vital Signs: Vital Signs Temperature 98.3 F 07/07/20 06:00 Pulse Rate 118 H 07/07/20 06:00 Respiratory Rate 20 07/07/20 06:00 Blood Pressure 150/76 07/07/20 06:00 O2 Sat by Pulse Oximetry (%) 94 L 07/07/20 06:00 Constitutional: Yes: Well Nourished, No Distress, Calm Gastrointestinal: Yes: WNL, Normal Bowel Sounds, Soft Renal/: Yes: WNL Kidneys: Yes: FLank Pain Right Pelvis: Yes: WNL Testicles: Yes: WNL Scrotum: Yes: WNL Penis: Yes: WNL Prostate Exam: Yes: WNL Labs: CBC, BMP 07/07/20 06:50 07/07/20 06:50 Imaging - Results Cat Scan: Report Reviewed Problem List - Problems (1) Sepsis Assessment/Plan: Ucx, IV abxs Code(s): A41.9 - SEPSIS, UNSPECIFIED ORGANISM (2) UTI (urinary tract infection) Code(s): N39.0 - URINARY TRACT INFECTION, SITE NOT SPECIFIED
[2020-07-07] MEDS ORDERED: PIPERACILLIN/TAZOB 4.5 GM 4.5 GM in DEXTROSE 5%-WATER 100 ML IVPB SCH ×2 (12:30→22:30)
[2020-07-07] MEDS ORDERED: PIPERACILLIN/TAZOBACTAM 4.5 GM VIAL IVPB ONE ×2 (12:39→17:20)
[2020-07-07] MEDS ORDERED: DEXTROSE 5%-WATER 100 ML IVPB ONE ×2 (12:39→17:20)
--- NOTE | 2020-07-07 12:51 | CON.ID ---
Consult Consult Specialty:: infectious disease Referred by:: hospitalist Reason for Consultation:: bacteremia - History of Present Illness Chief Complaint: fever History of Present Illness: s/p fall at home myalgia fever s/p stent on 07/05 received cefazolin during procedure and d/jair on bactrim reports vomiting- last night, none today myalgia flank pain he is alert ate a little bit today no BM for 2 days s/p cva - he is alert and able to make his needs known - History Source History Provided By: Patient, Medical Record Limitations to Obtaining History: Clinical Condition - Past Medical History [employer]: Yes: CVA Cardio/Vascular: Yes: HTN Renal/: Yes: Hematuria, Renal Calculi, UTI Endocrine: Yes: Diabetes Mellitus - Alcohol/Substance Use Hx Alcohol Use: No - Smoking History Smoking history: Never smoked Have you smoked in the past 12 months: No - Social History Usual Living Arrangement: With Spouse ADL: Family Assistance Occupation: ambulates with walker History of Recent Travel: No Home Medications - Allergies Allergies/Adverse Reactions: Allergies Allergy/AdvReac Type Severity Reaction Status Date / Time shellfish derived Allergy Verified 07/06/20 12:09 - Home Medications Home Medications: Ambulatory Orders Amlodipine Besylate 10 mg PO DAILY 03/01/20 Aspirin 81 mg PO DAILY 03/01/20 Calcium Carbonate [Calcium] 500 mg PO DAILY 03/01/20 Cholecalciferol (Vitamin D3) [Vitamin D3 -] 400 unit PO DAILY 03/01/20 Losartan Potassium 50 mg PO DAILY 03/01/20 Metformin HCl [Glucophage] 500 mg PO BID 03/01/20 Metoprolol Succinate 50 mg PO DAILY 03/01/20 Nortriptyline HCl [Pamelor -] 25 mg PO DAILY 03/01/20 [place]-3 Fatty Acids/Fish Oil [Fish Oil 1,000 mg Capsule] 1 each PO DAILY 03/01/20 Pantoprazole Sodium [Protonix -] 20 mg PO DAILY 03/01/20 Simvastatin 20 mg PO HS 03/01/20 Tamsulosin HCl 0.4 mg PO DAILY 03/01/20 Oxycodone HCl/Acetaminophen [Oxycodon-Acetaminophen 7.5-325] 1 each PO Q4H PRN 7 Days #42 tablet MDD 6 03/29/20 Dextrin [Fiber] 350 gm PO DAILY 07/04/20 Docusate Sodium [Colace] 100 mg PO DAILY 07/04/20 Ketorolac Tromethamine [Toradol] 10 mg PO Q6H #28 tablet 07/05/20 Sulfamethoxazole/Trimethoprim [Bactrim Ds -] 1 tab PO BID #14 tablet 07/05/20 Family Medical History Family History: Unable to Obtain Review of Systems - Review of Systems Constitutional: reports: Chills, Fever, Malaise, Weakness Eyes: reports: No Symptoms HENT: reports: No Symptoms Neck: reports: No Symptoms Cardiovascular: reports: No Symptoms. denies: Chest Pain Respiratory: reports: No Symptoms. denies: Cough Gastrointestinal: reports: Constipation, Nausea, Vomiting Genitourinary: reports: Flank Pain Musculoskeletal: reports: Muscle Pain (both thighs) Physical Exam Vital Signs: Vital Signs Temperature 99.4 F 07/07/20 11:10 Pulse Rate 130 H 07/07/20 11:10 Respiratory Rate 20 07/07/20 11:10 Blood Pressure 144/80 07/07/20 11:10 O2 Sat by Pulse Oximetry (%) 94 L 07/07/20 06:00 Constitutional: Yes: Well Nourished, No Distress, Moderate Distress Eyes: Yes: Conjunctiva Clear HENT: Yes: Atraumatic, Normocephalic Neck: Yes: Supple Cardiovascular: Yes: Regular Rate and Rhythm Respiratory: Yes: Regular, CTA Bilaterally Gastrointestinal: Yes: Normal Bowel Sounds, Other (distended, tympanitic) Extremities: Yes: WNL Edema: No Neurological: Yes: Alert, Oriented, Aphasia Labs: CBC, BMP 07/07/20 06:50 07/07/20 06:50 Microbiology 07/06/20 13:18 Blood - Peripheral Venous Blood Culture - Preliminary NO GROWTH OBTAINED AFTER 24 HOURS, INCUBATION TO CONTINUE FOR 4 DAYS. 07/06/20 13:18 Blood - Peripheral Venous Blood Culture - Preliminary Pending Organism-GNR Imaging - Results Chest X-ray: Report Reviewed Cat Scan: Report Reviewed Problem List - Problems (1) Sepsis Code(s): A41.9 - SEPSIS, UNSPECIFIED ORGANISM (2) UTI (urinary tract infection) Code(s): N39.0 - URINARY TRACT INFECTION, SITE NOT SPECIFIED (3) WALI (acute kidney injury) Code(s): N17.9 - ACUTE KIDNEY FAILURE, UNSPECIFIED (4) Abdominal distension Code(s): R14.0 - ABDOMINAL DISTENSION (GASEOUS) Assessment/Plan gram negative sepsis secondary to UTI recent stent no history of MDRO continue zosyn, adjust for WALI f/u cultures in am continue iv hydration bladder scan for possible bladder distention get abd xray r/o fecal retention
[2020-07-07] MEDS: PIPERACILLIN/TAZOB 4.5 GM 4.5 GM in DEXTROSE 5%-WATER 100 ML IVPB SCH ×2 (13:00→17:22)
[2020-07-07] MEDS ORDERED: VANCOMYCIN HCL 1,250 MG in DEXTROSE 5%-WATER - 250 ML IVPB SCH (14:00)
--- NOTE | 2020-07-07 14:05 | EKG ---
Test Reason : Blood Pressure : / mmHG Vent. Rate : 109 BPM Atrial Rate : 109 BPM P-R Int : 142 ms QRS Dur : 070 ms QT Int : 302 ms P-R-T Axes : 057 012 052 degrees QTc Int : 406 ms SINUS TACHYCARDIA POSSIBLE LEFT ATRIAL ENLARGEMENT LOW VOLTAGE QRS INFERIOR INFARCT , AGE UNDETERMINED CANNOT RULE OUT ANTERIOR INFARCT , AGE UNDETERMINED ABNORMAL ECG NO PREVIOUS ECGS AVAILABLE Confirmed by UDKE ROWE MD ([id number]) on 07/07/2020 2:05:07 PM Referred By: Confirmed By:DUKE ROWE MD
--- NOTE | 2020-07-07 15:20 | PN ---
Teaching Attending Note Name of Resident: Wei Lindsey ATTENDING PHYSICIAN STATEMENT I saw and evaluated the patient. I reviewed the resident's note and discussed the case with the resident. I agree with the resident's findings and plan as documented. SUBJECTIVE: Seen and examined at bedside. Patient is alert and is able to follow commands a nd respond to yes or no questions using body language. Blood cultures positive for gram-negative bacilli in 1 out of 2 bottles. Patient is tachycardic, but afebrile at this time. Follow-up chest x-ray shows air in the stool in colon along with some distended loops of small bowel in the lower abdomen pelvis which have increased since yesterday. Pending recommendations from urology regarding removal of stent or other intervention. OBJECTIVE Last Vital Signs Temp Pulse Resp BP Pulse Ox 99.4 F 130 H 20 144/80 94 L 07/07/20 11:10 07/07/20 11:10 07/07/20 11:10 07/07/20 11:10 07/07/20 06:00 PE: Per resident note Labs/Imaging: reviewed ASSESSMENT/PLAN 65-year-old male who presented 1 day after ureteroscopic laser lithotripsy and stent insertion for renal calculus with severe sepsis and WALI. #Severe sepsis with bacteremia status post lithotripsy and ureteral stent insertion Blood cultures positive for gram-negative rods in 1 out of 2 bottles On Zosyn Fluids ID and urology on board: Appreciate recommendations #Bowel obstruction? KUB shows distended loops of bowel N.p.o. Follow-up KUB in the morning #WALI: Postobstructive? Hydronephrosis seen on CT scan, possibly secondary to stent malfunction? Also possibly prerenal in the setting of sepsis Fluids Pending urology recommendations #Incidentally found lung nodule 3-month follow-up after discharge #Diabetes mellitus Sliding scale Hold home metformin
--- NOTE | 2020-07-07 15:25 | PN ---
Physical Exam: SUBJECTIVE: Patient seen and examined at bedside. Stent removed today with Dr Watt at bedside. OBJECTIVE: Vital Signs Period Temp Pulse Resp BP Sys/Dixon Pulse Ox Last 24 Hr 98 F-100.5 F 108-130 20-20 121-150/61-80 94-95 GENERAL: No acute distress. Aphasic HEAD: Normal with no signs of trauma. EYES: EOMI Sclera Clear ENT: MMM NECK: Trachea midline, full range of motion, supple. LUNGS: Crackles at bases HEART: RRR No MRG S1S2 ABDOMEN: Distended, tympanic to percussion, +Suprapubic tenderness, + R CVA Tenderness EXTREMITIES: No CCE NEUROLOGICAL: Complete right sided hemiparesis. Left Upper Extrem/Lower Extrem SILT/Strength 5/5. SKIN: Warm to touch, moist Laboratory Results - last 24 hr 07/06/20 07/06/20 07/06/20 17:00 17:15 22:59 WBC RBC Hgb Hct MCV MCH MCHC RDW Plt Count MPV Absolute Neuts (auto) Neutrophils % Neutrophils % (Manual) Band Neutrophils % Lymphocytes % Lymphocytes % (Manual) Monocytes % Monocytes % (Manual) Eosinophils % Eosinophils % (Manual) Basophils % Basophils % (Manual) Myelocytes % (Man) Promyelocytes % (Man) Blast Cells % (Manual) Nucleated RBC % Metamyelocytes Hypochromia Platelet Estimate Polychromasia Poikilocytosis Anisocytosis Microcytosis Macrocytosis Sodium Potassium Chloride Carbon Dioxide Anion Gap BUN Creatinine Est GFR (CKD-EPI)AfAm Est GFR (CKD-EPI)NonAf POC Glucometer 119 Random Glucose Lactic Acid 3.1 H* Calcium Phosphorus Magnesium Creatine Kinase Creatine Kinase Index CK-MB (CK-2) Troponin I Urine Color Yellow Urine Appearance Turbid Urine pH 5.5 Ur Specific [place] 1.021 Urine Protein 4+ H Urine Glucose (UA) Trace Urine Ketones Trace H Urine Blood 3+ H Urine Nitrite Negative Urine Bilirubin Negative Urine Urobilinogen 0.2 Ur Leukocyte Esterase 2+ H Urine WBC (Auto) 1863 Urine RBC (Auto) 542 Urine Casts (Auto) 3 U Epithel Cells (Auto) 11 Urine Bacteria (Auto) 158 07/06/20 07/06/20 07/07/20 23:35 23:35 06:26 WBC RBC Hgb Hct MCV MCH MCHC RDW Plt Count MPV Absolute Neuts (auto) Neutrophils % Neutrophils % (Manual) Band Neutrophils % Lymphocytes % Lymphocytes % (Manual) Monocytes % Monocytes % (Manual) Eosinophils % Eosinophils % (Manual) Basophils % Basophils % (Manual) Myelocytes % (Man) Promyelocytes % (Man) Blast Cells % (Manual) Nucleated RBC % Metamyelocytes Hypochromia Platelet Estimate Polychromasia Poikilocytosis Anisocytosis Microcytosis Macrocytosis Sodium Potassium Chloride Carbon Dioxide Anion Gap BUN Creatinine Est GFR (CKD-EPI)AfAm Est GFR (CKD-EPI)NonAf POC Glucometer 122 Random Glucose Lactic Acid 1.7 Calcium Phosphorus Magnesium Creatine Kinase 492 H Creatine Kinase Index 0.4 CK-MB (CK-2) 2.4 Troponin I < 0.02 Urine Color Urine Appearance Urine pH Ur Specific [place] Urine Protein Urine Glucose (UA) Urine Ketones Urine Blood Urine Nitrite Urine Bilirubin Urine Urobilinogen Ur Leukocyte Esterase Urine WBC (Auto) Urine RBC (Auto) Urine Casts (Auto) U Epithel Cells (Auto) Urine Bacteria (Auto) 07/07/20 07/07/20 07/07/20 06:50 06:50 06:50 WBC 27.0 H RBC 4.60 Hgb 12.2 Hct 38.0 MCV 82.5 MCH 26.5 MCHC 32.2 RDW 15.6 Plt Count 270 MPV 8.0 Absolute Neuts (auto) 24.7 H Neutrophils % 91.4 H Neutrophils % (Manual) 87.0 H Band Neutrophils % 10.0 Lymphocytes % 2.7 L Lymphocytes % (Manual) 2.0 L D Monocytes % 5.4 Monocytes % (Manual) 1 L D Eosinophils % 0.0 Eosinophils % (Manual) 0.0 Basophils % 0.5 Basophils % (Manual) 0.0 Myelocytes % (Man) 0 D Promyelocytes % (Man) 0 Blast Cells % (Manual) 0 Nucleated RBC % 0 Metamyelocytes 0 Hypochromia 0 Platelet Estimate Normal Polychromasia 0 Poikilocytosis 0 Anisocytosis 1+ Microcytosis 1+ Macrocytosis 0 Sodium 138 Potassium 4.0 Chloride 105 Carbon Dioxide 22 Anion Gap 10 BUN 25.6 H Creatinine 2.2 H Est GFR (CKD-EPI)AfAm 34.64 Est GFR (CKD-EPI)NonAf 29.89 POC Glucometer Random Glucose 103 Lactic Acid Calcium 8.2 L Phosphorus 3.2 Magnesium 1.8 Creatine Kinase 413 H Creatine Kinase Index 0.5 CK-MB (CK-2) 2.4 Troponin I Urine Color Urine Appearance Urine pH Ur Specific [place] Urine Protein Urine Glucose (UA) Urine Ketones Urine Blood Urine Nitrite Urine Bilirubin Urine Urobilinogen Ur Leukocyte Esterase Urine WBC (Auto) Urine RBC (Auto) Urine Casts (Auto) U Epithel Cells (Auto) Urine Bacteria (Auto) 07/07/20 12:07 WBC RBC Hgb Hct MCV MCH MCHC RDW Plt Count MPV Absolute Neuts (auto) Neutrophils % Neutrophils % (Manual) Band Neutrophils % Lymphocytes % Lymphocytes % (Manual) Monocytes % Monocytes % (Manual) Eosinophils % Eosinophils % (Manual) Basophils % Basophils % (Manual) Myelocytes % (Man) Promyelocytes % (Man) Blast Cells % (Manual) Nucleated RBC % Metamyelocytes Hypochromia Platelet Estimate Polychromasia Poikilocytosis Anisocytosis Microcytosis Macrocytosis Sodium Potassium Chloride Carbon Dioxide Anion Gap BUN Creatinine Est GFR (CKD-EPI)AfAm Est GFR (CKD-EPI)NonAf POC Glucometer 110 Random Glucose Lactic Acid Calcium Phosphorus Magnesium Creatine Kinase Creatine Kinase Index CK-MB (CK-2) Troponin I Urine Color Urine Appearance Urine pH Ur Specific [place] Urine Protein Urine Glucose (UA) Urine Ketones Urine Blood Urine Nitrite Urine Bilirubin Urine Urobilinogen Ur Leukocyte Esterase Urine WBC (Auto) Urine RBC (Auto) Urine Casts (Auto) U Epithel Cells (Auto) Urine Bacteria (Auto) Active Medications Generic Name Dose Route Start Last Admin Trade Name Freq PRN Reason Stop Dose Admin Acetaminophen 1,000 mg 07/06/20 22:00 07/06/20 22:56 Ofirmev Injection - IVPB 1,000 mg Q6H PRN Administration FEVER Heparin Sodium (Porcine) 5,000 unit 07/07/20 06:00 07/07/20 14:50 Heparin - SQ 5,000 unit TID LILIYA Administration Sodium Chloride 1,000 mls @ 100 mls/hr 07/06/20 21:45 07/07/20 14:49 Normal Saline - IV 100 mls/hr ASDIR LILIYA Administration Piperacillin Sod/Tazobactam 100 mls @ 200 mls/hr 07/07/20 18:00 Sod 4.5 gm/ Dextrose IVPB Q8H-IV LILIYA Protocol Insulin Aspart 1 vial 07/06/20 22:00 07/07/20 12:08 Novolog Vial Sliding Scale - SQ Not Given ACHS LILIYA Protocol ASSESSMENT/PLAN: 65-year-old male who presented 1 day after ureteroscopic laser lithotripsy and stent insertion for renal calculus with severe sepsis and WALI. #Severe sepsis with bacteremia status post lithotripsy and ureteral stent insertion Blood cultures positive for gram-negative rods in 1 out of 2 bottles On Zosyn Fluids ID and urology on board. Urology recommending Surgical evaluation for abdominal distension/possible SBO. Stent removed at bedside. #Bowel obstruction? KUB shows distended loops of bowel. Will consult Surgery Dr Ball. Recs appreciated NPO Follow-up KUB in the morning #WALI: Postobstructive? Hydronephrosis seen on CT scan, possibly secondary to stent malfunction? Also possibly prerenal in the setting of sepsis Fluids Dr Watt on board. Stent removed. #Incidentally found lung nodule 3-month follow-up after discharge #Diabetes mellitus Sliding scale Hold home metformin #FEN NS@100cc/hr Monitor Electrolytes NPO #DVT ppx: HEPSQTID #Dispo: Med-Surg Visit type - Emergency Visit Emergency Visit: Yes ED Registration Date: 07/06/20 Care time: The patient presented to the Emergency Department on the above date and was hospitalized for further evaluation of their emergent condition. - New Patient This patient is new to me today: No - Critical Care Critical Care patient: No - Discharge Referral Referred to [facility] No - Medication Review Med list reviewed for High Risk Meds patients 65 and older: Yes ATTENDING PHYSICIAN STATEMENT I saw and evaluated the patient. I reviewed the resident's note and discussed the case with the resident. I agree with the resident's findings and plan as documented. SUBJECTIVE: OBJECTIVE: ASSESSMENT AND PLAN:
[2020-07-07] MEDS: ACETAMINOPHEN 1000 MG/100 ML VIAL (NON FORMULARY) IVPB PRN (17:17)
[2020-07-08] MEDS ORDERED: DEXTROSE 5%-WATER 100 ML IVPB ONE ×3 (01:11→17:03)
[2020-07-08] MEDS ORDERED: PIPERACILLIN/TAZOBACTAM 4.5 GM VIAL IVPB ONE ×3 (01:11→17:03)
[2020-07-08] MEDS: PIPERACILLIN/TAZOB 4.5 GM 4.5 GM in DEXTROSE 5%-WATER 100 ML IVPB SCH ×3 (01:14→17:07)
[2020-07-08] MEDS: SODIUM CHLORIDE 1,000 ML IV SCH ×2 (01:15→22:21)
[2020-07-08] MEDS: ACETAMINOPHEN 1000 MG/100 ML VIAL (NON FORMULARY) IVPB PRN ×2 (01:57→10:05)
[2020-07-08] MEDS: HEPARIN NA (PORCINE) 5,000 UNITS/ML 1ML VIAL SQ SCH ×3 (06:12→22:21)
[2020-07-08] MEDS: INSULIN SLIDING SCALE (NOVOLOG) 1 VIAL SQ SCH ×4 (06:12→22:27)
[2020-07-08 08:11] LABS: HEMATOCRIT 36.4 % (35.4-49); HEMOGLOBIN 12.1 GM/dL (11.7-16.9); MCH 27.3 pg (25.7-33.7); MCHC 33.2 g/dl (32.0-35.9); PLATELET COUNT 234 K/MM3 (134-434); RBC 4.44 M/mm3 (4.00-5.60); RDW 15.3 % (11.9-15.9); WHITE BLOOD COUNT 17.2 K/mm3 (4.0-10.0)
[2020-07-08 08:36] LABS: BLOOD UREA NITROGEN 17.9 mg/dL (7-18); CALCIUM 8.3 mg/dL (8.5-10.1); CREATININE 1.7 mg/dL (0.55-1.3); MAGNESIUM 3.6 mg/dL (1.8-2.4); PHOSPHOROUS 2.3 mg/dL (2.5-4.9); POTASSIUM 3.5 mmol/L (3.5-5.1)
[2020-07-08] MEDS ORDERED: PT OWN MED DRAWER 7, Y5N ONE (10:01)
[2020-07-08] MEDS ORDERED: BISACODYL 5 MG TABLET.DR (FP) PO ONE (12:45)
[2020-07-08] MEDS ORDERED: BISACODYL 10 MG SUPP.RECT PR ONE (13:00)
[2020-07-08] MEDS: DOCUSATE SODIUM 100 MG CAPSULE (FP) PO SCH ×2 (13:05→22:21)
--- NOTE | 2020-07-08 13:55 | PN ---
Progress Note (short form) - Note Progress Note: feels better less myalgia fevers trending down Vital Signs Period Temp Pulse Resp BP Sys/Dixon Pulse Ox Last 24 Hr 98.7 F-102.1 F 95-122 18-20 140-155/80-95 94-97 cor-rrr lungs clear abd softer, less distended, less tympanitic ext no edema CBC, BMP 07/08/20 07:45 07/08/20 07:45 Microbiology 07/06/20 13:18 Blood - Peripheral Venous Blood Culture - Preliminary NO GROWTH OBTAINED AFTER 48 HOURS, INCUBATION TO CO NTINUE FOR 3 DAYS. 07/06/20 17:15 Urine - Urine Clean Catch Urine Culture - Preliminary Non Lactose Fermenting Gnb 07/06/20 13:18 Blood - Peripheral Venous Blood Culture - Preliminary Non Lactose Fermenting Gnb a/p gram negative bacteremia- f/u cultures secondary to UTI continue zosyn renal funcition and wbc improving constipation- s/p cva with aphasia and right hemiparesis Problem List - Problems (1) Sepsis Code(s): A41.9 - SEPSIS, UNSPECIFIED ORGANISM (2) UTI (urinary tract infection) Code(s): N39.0 - URINARY TRACT INFECTION, SITE NOT SPECIFIED (3) WALI (acute kidney injury) Code(s): N17.9 - ACUTE KIDNEY FAILURE, UNSPECIFIED (4) Abdominal distension Code(s): R14.0 - ABDOMINAL DISTENSION (GASEOUS)
--- NOTE | 2020-07-08 14:50 | PN ---
Teaching Attending Note Name of Resident: Wei Lindsey ATTENDING PHYSICIAN STATEMENT I saw and evaluated the patient. I reviewed the resident's note and discussed the case with the resident. I agree with the resident's findings and plan as documented. SUBJECTIVE: Seen and examined at bedside. Patient appears clinically improved today. Still with right-sided abdominal tenderness and bloating, but is passing gas. KUB this morning not consistent with bowel obstruction. Will advance to clear liquid diet. Patient complaining of right lower extremity pain will get Doppler US OBJECTIVE Last Vital Signs Temp Pulse Resp BP Pulse Ox 99.4 F 100 H 20 143/90 97 07/08/20 10:00 07/08/20 10:00 07/08/20 10:00 07/08/20 10:00 07/08/20 10:00 PE: Per resident note Labs/Imaging: reviewed ASSESSMENT/PLAN 65-year-old male who presented 1 day after ureteroscopic laser lithotripsy and stent insertion for renal calculus with severe sepsis and WALI. #Severe sepsis with bacteremia status post lithotripsy and ureteral stent insertion: blood cx 1/2 and urine cx + for lactose non-fermenting GNR Blood cultures and urine cx positive for lactose non-fermenting GNR in 1 out of 2 bottles On Zosyn Fluids ID and urology on board: Appreciate recommendations #Bowel obstruction? improving -passing gas -clear liquid diet advance tomorrow if tolerated #WALI: Postobstructive vs prerenal: improving Hydronephrosis seen on CT scan, possibly secondary to stent malfunction? Also possibly prerenal in the setting of sepsis Fluids #Incidentally found lung nodule 3-month follow-up after discharge #Diabetes mellitus Sliding scale Hold home metformin
[2020-07-08] MEDS ORDERED: BISACODYL 10 MG SUPP.RECT PR PRN (14:52)
--- NOTE | 2020-07-08 14:52 | PN ---
LINN Barclay Note Chief Complaint: w/o c/o, passing gas, no BM, feels better, afebrile History of Present Illness: POD # 2 s/p RULL JJ stent insertion - Objective Vital Signs: Vital Signs Temperature 99.4 F 07/08/20 10:00 Pulse Rate 100 H 07/08/20 10:00 Respiratory Rate 07/08/20 10:00 Blood Pressure 143/90 07/08/20 10:00 O2 Sat by Pulse Oximetry (%) 97 07/08/20 10:00 Constitutional: Yes: Well Nourished, No Distress, Calm Gastrointestinal: Yes: WNL, Normal Bowel Sounds, Soft, Distention Genitourinary: Yes: WNL Kidneys: Yes: WNL Pelvis: Yes: WNL Labs/Additional Data: CBC, BMP 07/08/20 07:45 07/08/20 07:45 INR, PTT INR 1.24 (0.83-1.09) H 07/06/20 13:18 Imaging - Results X-ray: Report Reviewed Problem List - Problems (1) Sepsis Assessment/Plan: cont iv abxs Code(s): A41.9 - SEPSIS, UNSPECIFIED ORGANISM (2) UTI (urinary tract infection) Assessment/Plan: cont iv abxs Code(s): N39.0 - URINARY TRACT INFECTION, SITE NOT SPECIFIED (3) Constipation Assessment/Plan: dulcolax suppository, colace Code(s): K59.00 - CONSTIPATION, UNSPECIFIED
--- NOTE | 2020-07-08 18:45 | PN ---
Physical Exam: SUBJECTIVE: Patient seen and examined at bedside. No fevers overnight. OBJECTIVE: Vital Signs Period Temp Pulse Resp BP Sys/Dixon Pulse Ox Last 24 Hr 98.2 F-100 F 86-105 18-20 140-161/70-94 94-97 GENERAL: No acute distress. Aphasic HEAD: Normal with no signs of trauma. EYES: EOMI Sclera Clear ENT: MMM NECK: Trachea midline, full range of motion, supple. LUNGS: Decreased breath sounds at bases HEART: RRR No MRG S1S2 ABDOMEN: Distended, tympanic to percussion, +Suprapubic tenderness, + R CVA Tenderness EXTREMITIES: No CCE NEUROLOGICAL: Complete right sided hemiparesis. Left Upper Extrem/Lower Extrem SILT/Strength 5/5. SKIN: Warm to touch, moist Laboratory Results - last 24 hr 07/06/20 07/07/20 07/08/20 22:00 21:20 06:11 WBC RBC Hgb Hct MCV MCH MCHC RDW Plt Count MPV Sodium Potassium Chloride Carbon Dioxide Anion Gap BUN Creatinine Est GFR (CKD-EPI)AfAm Est GFR (CKD-EPI)NonAf POC Glucometer 177 141 Random Glucose Calcium Phosphorus Magnesium COVID-19 (GERARD) Not detected 07/08/20 07/08/20 07/08/20 07:45 07:45 11:29 WBC 17.2 H RBC 4.44 Hgb 12.1 Hct 36.4 MCV 82.0 MCH 27.3 MCHC 33.2 RDW 15.3 Plt Count 234 MPV 8.0 Sodium 138 Potassium 3.5 Chloride 106 Carbon Dioxide 24 Anion Gap 8 BUN 17.9 Creatinine 1.7 H Est GFR (CKD-EPI)AfAm 47.31 Est GFR (CKD-EPI)NonAf 40.82 POC Glucometer 163 Random Glucose 139 H Calcium 8.3 L Phosphorus 2.3 L Magnesium 3.6 H COVID-19 (GERARD) 07/08/20 16:53 WBC RBC Hgb Hct MCV MCH MCHC RDW Plt Count MPV Sodium Potassium Chloride Carbon Dioxide Anion Gap BUN Creatinine Est GFR (CKD-EPI)AfAm Est GFR (CKD-EPI)NonAf POC Glucometer 136 Random Glucose Calcium Phosphorus Magnesium COVID-19 (GERARD) Active Medications Generic Name Dose Route Start Last Admin Trade Name Freq PRN Reason Stop Dose Admin Acetaminophen 650 mg 07/08/20 18:26 Tylenol - PO Q4H PRN PAIN LEVEL 1-5 Bisacodyl 10 mg 07/08/20 14:52 Dulcolax Suppository - [place] DAILY PRN CONSTIPATION Docusate Sodium 100 mg 07/08/20 14:00 07/08/20 13:05 Colace - PO 100 mg TID LILIYA Administration Heparin Sodium (Porcine) 5,000 unit 07/07/20 06:00 07/08/20 13:05 Heparin - SQ 5,000 unit TID LILIYA Administration Sodium Chloride 1,000 mls @ 100 mls/hr 07/06/20 21:45 07/08/20 01:15 Normal Saline - IV 100 mls/hr ASDIR LILIYA Administration Piperacillin Sod/Tazobactam 100 mls @ 200 mls/hr 07/07/20 18:00 07/08/20 17:07 Sod 4.5 gm/ Dextrose IVPB 200 mls/hr Q8H-IV LILIYA Administration Protocol Insulin Aspart 1 vial 07/06/20 22:00 07/08/20 16:53 Novolog Vial Sliding Scale - SQ Not Given ACHS LILIYA Protocol ASSESSMENT/PLAN: 65-year-old male who presented 1 day after ureteroscopic laser lithotripsy and stent insertion for renal calculus with severe sepsis and WALI. #Severe sepsis with bacteremia status post lithotripsy and ureteral stent insertion Blood cultures positive for gram-negative rods in 1 out of 2 bottles. WBC trending downwards. Afebrile overnight. Continue to trend WBC On Zosyn Fluids ID and urology on board. #Possible Bowel obstruction Initial KUB shows distended loops of bowel. Will consult Surgery Dr Ball. Recs appreciated Follow-up KUB ---> No SBO appreciated. #WALI: Postobstructive? Hydronephrosis seen on CT scan, possibly secondary to stent malfunction? Also possibly prerenal in the setting of sepsis Fluids Dr Watt on board. Stent removed. #Incidentally found lung nodule 3-month follow-up after discharge #Diabetes mellitus Sliding scale Hold home metformin #FEN NS@100cc/hr Monitor Electrolytes NDiabetic/Sodium diet #DVT ppx: HEPSQTID #Dispo: Med-Surg Visit type - Emergency Visit Emergency Visit: Yes ED Registration Date: 07/06/20 Care time: The patient presented to the Emergency Department on the above date and was hospitalized for further evaluation of their emergent condition. - New Patient This patient is new to me today: No - Critical Care Critical Care patient: No - Discharge Referral Referred to [facility] No - Medication Review Med list reviewed for High Risk Meds patients 65 and older: Yes ATTENDING PHYSICIAN STATEMENT I saw and evaluated the patient. I reviewed the resident's note and discussed the case with the resident. I agree with the resident's findings and plan as documented. SUBJECTIVE: OBJECTIVE: ASSESSMENT AND PLAN:
[2020-07-09] MEDS ORDERED: DEXTROSE 5%-WATER 100 ML IVPB ONE ×3 (01:20→17:47)
[2020-07-09] MEDS ORDERED: PIPERACILLIN/TAZOBACTAM 4.5 GM VIAL IVPB ONE ×3 (01:20→17:47)
[2020-07-09] MEDS: ACETAMINOPHEN 325 MG TABLET (FP) PO PRN ×2 (01:36→15:46)
[2020-07-09] MEDS: PIPERACILLIN/TAZOB 4.5 GM 4.5 GM in DEXTROSE 5%-WATER 100 ML IVPB SCH ×3 (01:37→17:48)
[2020-07-09] MEDS ORDERED: amLODIPine BESYLATE 10 MG TABLET (FP) PO ONE (02:40)
[2020-07-09] MEDS: HEPARIN NA (PORCINE) 5,000 UNITS/ML 1ML VIAL SQ SCH ×3 (05:36→22:41)
[2020-07-09] MEDS: DOCUSATE SODIUM 100 MG CAPSULE (FP) PO SCH ×3 (05:36→22:41)
[2020-07-09] MEDS: INSULIN SLIDING SCALE (NOVOLOG) 1 VIAL SQ SCH ×4 (06:46→22:41)
[2020-07-09 08:05] LABS: HEMATOCRIT 36.5 % (35.4-49); MCHC 32.8 g/dl (32.0-35.9); MEAN CELL VOLUME 82.3 fl (80-96); MEAN PLT VOLUME 7.9 fl (7.5-11.1); PLATELET COUNT 287 K/MM3 (134-434); RBC 4.43 M/mm3 (4.00-5.60); RDW 15.3 % (11.9-15.9); WHITE BLOOD COUNT 11.5 K/mm3 (4.0-10.0)
[2020-07-09 08:32] LABS: CALCIUM 8.1 mg/dL (8.5-10.1); CREATININE 1.2 mg/dL (0.55-1.3); MAGNESIUM 2.3 mg/dL (1.8-2.4); PHOSPHOROUS 2.3 mg/dL (2.5-4.9); POTASSIUM 3.6 mmol/L (3.5-5.1)
[2020-07-09] MEDS: LOSARTAN POTASSIUM 50 MG TABLET PO SCH (10:27)
[2020-07-09] MEDS: amLODIPine BESYLATE 10 MG TABLET (FP) PO SCH (10:27)
[2020-07-09] MEDS: SODIUM CHLORIDE 1,000 ML IV SCH (10:28)
--- NOTE | 2020-07-09 18:18 | PN ---
Progress Note (short form) - Note Progress Note: S: No acute events. Patient notes distended abdomen with discomfort from distention. BM yesterday noted by housekeeping staff. No other complaints. Vital Signs Temperature 98.2 F 07/09/20 14:00 Pulse Rate 89 07/09/20 14:00 Respiratory Rate 18 07/09/20 14:00 Blood Pressure 148/81 07/09/20 14:00 O2 Sat by Pulse Oximetry (%) 95 07/09/20 10:00 PE: Gen: NAD, awake, alert, expressive aphasia, however no component of receptive a phasia HEENT: NC/AT, GABRIELLE, MMM LUNG: CTA b/l without wheezes or rales CARD: RRR no murmurs appreciated ABD: soft, slightly distended, nontender, normoactive BS, no guarding EXT: No edema Microbiology 07/06/20 17:15 Urine - Urine Clean Catch Urine Culture - Final Pseudomonas Aeruginosa 07/06/20 13:18 Blood - Peripheral Venous Blood Culture - Final Pseudomonas Aeruginosa 07/06/20 13:18 Blood - Peripheral Venous Blood Culture - Final Pseudomonas Aeruginosa CBC, BMP 07/09/20 07:00 07/09/20 07:00 Active Medications Acetaminophen (Tylenol -) 650 mg PO Q4H PRN PRN Reason: PAIN LEVEL 1-5 Last Admin: 07/09/20 15:46 Dose: 650 mg Documented by: Amlodipine Besylate (Norvasc -) 10 mg PO DAILY [facility] Last Admin: 07/09/20 10:27 Dose: 10 mg Documented by: Bisacodyl (Dulcolax Suppository -) 10 mg [place] DAILY PRN PRN Reason: CONSTIPATION Docusate Sodium (Colace -) 100 mg PO TID [facility] Last Admin: 07/09/20 15:46 Dose: 100 mg Documented by: Heparin Sodium (Porcine) (Heparin -) 5,000 unit SQ TID [facility] Last Admin: 07/09/20 15:46 Dose: 5,000 unit Documented by: Piperacillin Sod/Tazobactam (Sod 4.5 gm/ Dextrose) 100 mls @ 200 mls/hr IVPB Q8H-IV [facility]; Protocol Last Admin: 07/09/20 17:48 Dose: 200 mls/hr Documented by: Insulin Aspart (Novolog Vial Sliding Scale -) 1 vial SQ ACHS [facility]; Protocol Last Admin: 07/09/20 17:46 Dose: 2 units Documented by: Losartan Potassium (Cozaar -) 50 mg PO DAILY [facility] Last Admin: 07/09/20 10:27 Dose: 50 mg Documented by: Metoprolol Succinate (Toprol Xl -) 50 mg PO DAILY [facility] Last Admin: 07/09/20 10:27 Dose: 50 mg Documented by: Assessment and Plan: Severe sepsis 2/2 complicated pyelonephritis Nephrolithiasis s/p laser lithotripsy and stent insertion with subsequent POD 2 stent removal Ileus now resolving Acute kidney injury, resolving 0.3cm incidental pulmonary nodule with mediastinal LN 1cm Adrenal nodule Type 2 DM history --Blood Cx and Urine Cx noted for sensitive Pseudomonas --Continue Zosyn therapy with ID to guide length of antibiotics --Noted urology recommendations and now source control initiated --Ileus improving --AXR from yesterday reviewed with no obstructive patterning noted --Continue clear liquid diet as patient has distention --Colace TID, adding PRN full bowel regimen for patients constipation --WALI improving after procedure; monitor Cr and avoid nephrotoxic agents --Continue all home medications --ISS and BGM monitoring; holding Metformin inpatient --3 month outpatient low-dose CT f/u for pulmonary and adrenal nodules Dispo: Continue M/S Ariel Tenorio DO - IM
[2020-07-10] MEDS: PIPERACILLIN/TAZOB 4.5 GM 4.5 GM in DEXTROSE 5%-WATER 100 ML IVPB SCH ×3 (01:58→18:09)
[2020-07-10] MEDS ORDERED: PIPERACILLIN/TAZOBACTAM 4.5 GM VIAL IVPB ONE ×3 (02:34→17:40)
[2020-07-10] MEDS ORDERED: DEXTROSE 5%-WATER 100 ML IVPB ONE ×3 (02:34→17:40)
[2020-07-10] MEDS ORDERED: INSULIN (NOVOLOG) ASPART 100 UNITS/ML 10ML VIAL ONE ×3 (05:56→20:44)
[2020-07-10] MEDS: DOCUSATE SODIUM 100 MG CAPSULE (FP) PO SCH ×3 (05:59→20:59)
[2020-07-10] MEDS: INSULIN SLIDING SCALE (NOVOLOG) 1 VIAL SQ SCH ×4 (05:59→20:59)
[2020-07-10] MEDS: HEPARIN NA (PORCINE) 5,000 UNITS/ML 1ML VIAL SQ SCH ×3 (05:59→20:59)
[2020-07-10 09:08] LABS: BLOOD UREA NITROGEN 13.2 mg/dL (7-18); CALCIUM 8.7 mg/dL (8.5-10.1); CREATININE 1.2 mg/dL (0.55-1.3); PHOSPHOROUS 2.3 mg/dL (2.5-4.9); POTASSIUM 3.8 mmol/L (3.5-5.1)
[2020-07-10] MEDS: NAPH,MB-DB/K PH,MBDB POWDER PACKET PO SCH ×2 (10:38→20:59)
[2020-07-10] MEDS: LOSARTAN POTASSIUM 50 MG TABLET PO SCH (10:38)
[2020-07-10] MEDS: amLODIPine BESYLATE 10 MG TABLET (FP) PO SCH (10:38)
--- NOTE | 2020-07-10 11:51 | PN ---
Progress Note, Physician History of Present Illness: AWAKE, ALERT IN BED APHASIC BC, URINE C/S PSEUDOMONAS AFEBRILE WBC, CR IMPROVED - Current Medication List Current Medications: Active Medications Acetaminophen (Tylenol -) 650 mg PO Q4H PRN PRN Reason: PAIN LEVEL 1-5 Last Admin: 07/09/20 15:46 Dose: 650 mg Documented by: Amlodipine Besylate (Norvasc -) 10 mg PO DAILY [facility] Last Admin: 07/10/20 10:38 Dose: 10 mg Documented by: Bisacodyl (Dulcolax Suppository -) 10 mg [place] DAILY PRN PRN Reason: CONSTIPATION Docusate Sodium (Colace -) 100 mg PO TID [facility] Last Admin: 07/10/20 05:59 Dose: 100 mg Documented by: Heparin Sodium (Porcine) (Heparin -) 5,000 unit SQ TID [facility] Last Admin: 07/10/20 05:59 Dose: 5,000 unit Documented by: Piperacillin Sod/Tazobactam (Sod 4.5 gm/ Dextrose) 100 mls @ 200 mls/hr IVPB Q8H-IV [facility]; Protocol Last Admin: 07/10/20 10:37 Dose: 200 mls/hr Documented by: Insulin Aspart (Novolog Vial Sliding Scale -) 1 vial SQ ACHS [facility]; Protocol Last Admin: 07/10/20 05:59 Dose: 2 units Documented by: Losartan Potassium (Cozaar -) 50 mg PO DAILY [facility] Last Admin: 07/10/20 10:38 Dose: 50 mg Documented by: Metoprolol Succinate (Toprol Xl -) 50 mg PO DAILY [facility] Last Admin: 07/10/20 10:38 Dose: 50 mg Documented by: Potassium Phos/Sodium Phos (Phos-Nak Packet -) 1 packet PO BID [facility] Stop: 07/10/20 22:01 Last Admin: 07/10/20 10:38 Dose: 1 packet Documented by: - Objective Vital Signs: Vital Signs Temperature 98.2 F 07/10/20 06:00 Pulse Rate 89 07/10/20 06:00 Respiratory Rate 07/10/20 06:00 Blood Pressure 163/97 07/10/20 06:00 O2 Sat by Pulse Oximetry (%) 95 07/10/20 06:00 Constitutional: Yes: No Distress Eyes: Yes: Conjunctiva Clear Cardiovascular: Yes: Regular Rate and Rhythm, S1, S2 Respiratory: Yes: CTA Bilaterally Gastrointestinal: Yes: Normal Bowel Sounds, Soft. No: Tenderness Edema: No Labs: CBC, BMP 07/09/20 07:00 07/10/20 07:05 INR, PTT INR 1.24 (0.83-1.09) H 07/06/20 13:18 Assessment/Plan GRAM NEGATIVE SEPSIS SEPSIS SECONDARY TO SOURCE S/P STENT S/P CVA CONTINUE ZOSYN
--- NOTE | 2020-07-10 15:24 | PN ---
Progress Note (short form) - Note Progress Note: S: No acute events. 3 BM overnight with ongoing in AM. Patient with improved abdomen and no complaints. Vital Signs Temperature 98.2 F 07/10/20 06:00 Pulse Rate 89 07/10/20 06:00 Respiratory Rate 20 07/10/20 06:00 Blood Pressure 163/97 07/10/20 06:00 O2 Sat by Pulse Oximetry (%) 95 07/10/20 06:00 PE: Gen: NAD, awake, alert, expressive aphasia, however no component of receptive aphasia HEENT: NC/AT, GABRIELLE, MMM LUNG: CTA b/l without wheezes or rales CARD: RRR no murmurs appreciated ABD: soft, ND, nontender, normoactive BS, no guarding EXT: No edema Microbiology 07/06/20 17:15 Urine - Urine Clean Catch Urine Culture - Final Pseudomonas Aeruginosa 07/06/20 13:18 Blood - Peripheral Venous Blood Culture - Final Pseudomonas Aeruginosa 07/06/20 13:18 Blood - Peripheral Venous Blood Culture - Final Pseudomonas Aeruginosa CBC, BMP 07/09/20 07:00 07/10/20 07:05 Active Medications Acetaminophen (Tylenol -) 650 mg PO Q4H PRN PRN Reason: PAIN LEVEL 1-5 Last Admin: 07/09/20 15:46 Dose: 650 mg Documented by: Amlodipine Besylate (Norvasc -) 10 mg PO DAILY [facility] Last Admin: 07/09/20 10:27 Dose: 10 mg Documented by: Bisacodyl (Dulcolax Suppository -) 10 mg RI DAILY PRN PRN Reason: CONSTIPATION Docusate Sodium (Colace -) 100 mg PO TID [facility] Last Admin: 07/09/20 15:46 Dose: 100 mg Documented by: Heparin Sodium (Porcine) (Heparin -) 5,000 unit SQ TID [facility] Last Admin: 07/09/20 15:46 Dose: 5,000 unit Documented by: Piperacillin Sod/Tazobactam (Sod 4.5 gm/ Dextrose) 100 mls @ 200 mls/hr IVPB Q8H-IV [facility]; Protocol Last Admin: 07/09/20 17:48 Dose: 200 mls/hr Documented by: Insulin Aspart (Novolog Vial Sliding Scale -) 1 vial SQ ACHS [facility]; Protocol Last Admin: 07/09/20 17:46 Dose: 2 units Documented by: Losartan Potassium (Cozaar -) 50 mg PO DAILY [facility] Last Admin: 07/09/20 10:27 Dose: 50 mg Documented by: Metoprolol Succinate (Toprol Xl -) 50 mg PO DAILY [facility] Last Admin: 07/09/20 10:27 Dose: 50 mg Documented by: Assessment and Plan: Severe sepsis 2/2 complicated pyelonephritis Nephrolithiasis s/p laser lithotripsy and stent insertion with subsequent POD 2 stent removal Ileus now resolving Acute kidney injury, resolving 0.3cm incidental pulmonary nodule with mediastinal LN 1cm Adrenal nodule Type 2 DM history --Blood Cx and Urine Cx noted for sensitive Pseudomonas --Continue Zosyn therapy while inpatient and can switch to PO ABX tomorrow --Constipation resolving --Maintain bowel regimen PRN --Tolerating DM/Na regular diet --WALI improving after procedure; monitor Cr and avoid nephrotoxic agents --Continue all home medications --ISS and BGM monitoring; holding Metformin inpatient --3 month outpatient low-dose CT f/u for pulmonary and adrenal nodules Dispo: Anticipate d/c tomorrow with PO ABX: patient has home services which cannot be reinitiated until tomorrow Ariel Tenorio, DO - IM
[2020-07-11] MEDS ORDERED: DEXTROSE 5%-WATER 100 ML IVPB ONE ×3 (01:13→17:16)
[2020-07-11] MEDS ORDERED: PIPERACILLIN/TAZOBACTAM 4.5 GM VIAL IVPB ONE ×3 (01:13→17:16)
[2020-07-11] MEDS: PIPERACILLIN/TAZOB 4.5 GM 4.5 GM in DEXTROSE 5%-WATER 100 ML IVPB SCH ×3 (01:31→17:18)
[2020-07-11] MEDS: HEPARIN NA (PORCINE) 5,000 UNITS/ML 1ML VIAL SQ SCH ×3 (05:30→21:00)
[2020-07-11] MEDS: DOCUSATE SODIUM 100 MG CAPSULE (FP) PO SCH ×3 (05:30→21:05)
[2020-07-11] MEDS: INSULIN SLIDING SCALE (NOVOLOG) 1 VIAL SQ SCH ×4 (07:03→21:06)
[2020-07-11] MEDS: amLODIPine BESYLATE 10 MG TABLET (FP) PO SCH (09:26)
[2020-07-11] MEDS: LOSARTAN POTASSIUM 50 MG TABLET PO SCH (09:27)
[2020-07-11 10:47] LABS: BASO % 0.4 % (0-2.0); EOS % 0.6 % (0-4.5); HEMATOCRIT 39.7 % (35.4-49); HEMOGLOBIN 12.7 GM/dL (11.7-16.9); LYMPH % 10.6 % (8-40); MCH 25.9 pg (25.7-33.7); MCHC 31.9 g/dl (32.0-35.9); MEAN CELL VOLUME 81.1 fl (80-96); MEAN PLT VOLUME 7.3 fl (7.5-11.1); NEUT % 74.4 % (42.8-82.8); PLATELET COUNT 383 K/MM3 (134-434); RDW 15.1 % (11.9-15.9); WHITE BLOOD COUNT 13.4 K/mm3 (4.0-10.0)
[2020-07-11 11:08] LABS: BLOOD UREA NITROGEN 13.8 mg/dL (7-18); CALCIUM 8.8 mg/dL (8.5-10.1); CREATININE 1.1 mg/dL (0.55-1.3); POTASSIUM 3.8 mmol/L (3.5-5.1)
[2020-07-11 12:28] LABS: ANISOCYTOSIS 1+; MACROCYTOSIS 1+; OVALOCYTE 1+; PLATELET ESTIMATE NORMAL
--- NOTE | 2020-07-11 13:05 | PN ---
Progress Note (short form) - Note Progress Note: feels improved myalgias resolved Vital Signs Period Temp Pulse Resp BP Sys/Dixon Pulse Ox Last 24 Hr 98.3 F-98.6 F 79-89 20-20 144-176/82-91 95-97 cor-rrr lungs decreased bs at bases abd soft,nt ext no edema CBC, BMP 07/11/20 10:09 07/11/20 10:09 Microbiology 07/06/20 17:15 Urine - Urine Clean Catch Urine Culture - Final Pseudomonas Aeruginosa 07/06/20 13:18 Blood - Peripheral Venous Blood Culture - Final Pseudomonas Aeruginosa 07/06/20 13:18 Blood - Peripheral Venous Blood Culture - Final Pseudomonas Aeruginosa a/p pseudomonas bacteremia/UTI continue zosyn day #5 repeat blood cultures given continued leukocytosis constipation- s/p cva with aphasia and right hemiparesis Problem List - Problems (1) Sepsis Code(s): A41.9 - SEPSIS, UNSPECIFIED ORGANISM (2) UTI (urinary tract infection) Code(s): N39.0 - URINARY TRACT INFECTION, SITE NOT SPECIFIED (3) WALI (acute kidney injury) Code(s): N17.9 - ACUTE KIDNEY FAILURE, UNSPECIFIED (4) Abdominal distension Code(s): R14.0 - ABDOMINAL DISTENSION (GASEOUS)
--- NOTE | 2020-07-11 13:56 | PN ---
Teaching Attending Note Name of Resident: Wei Lindsey ATTENDING PHYSICIAN STATEMENT I saw and evaluated the patient. I reviewed the resident's note and discussed the case with the resident. I agree with the resident's findings and plan as documented. SUBJECTIVE: Seen and examined at bedside. Continues to improve. Continuing with zosyn OBJECTIVE Last Vital Signs Temp Pulse Resp BP Pulse Ox 98.6 F 89 20 153/84 95 07/11/20 09:00 07/11/20 09:00 07/11/20 09:00 07/11/20 09:00 07/11/20 09:00 PE: Per resident note Labs/Imaging: reviewed ASSESSMENT/PLAN 65-year-old male who presented 1 day after ureteroscopic laser lithotripsy and stent insertion for renal calculus with severe sepsis and WALI. #Severe sepsis with bacteremia status post lithotripsy and ureteral stent insertion: cx+ for pseudomonas Blood cultures and urine cx positive for lactose non-fermenting GNR in 1 out of 2 bottles On Zosyn Fluids ID and urology on board: Appreciate recommendations #Bowel obstruction? resolved -passing gas -clear liquid diet advance tomorrow if tolerated #WALI: Postobstructive vs prerenal: improving Hydronephrosis seen on CT scan, possibly secondary to stent malfunction? Also possibly prerenal in the setting of sepsis Fluids #Incidentally found lung nodule 3-month follow-up after discharge #Diabetes mellitus Sliding scale Hold home metformin
--- NOTE | 2020-07-11 20:01 | PN ---
Physical Exam: SUBJECTIVE: Patient seen and examined at bedside. Feeling better today. No fevers overnight. OBJECTIVE: Vital Signs Period Temp Pulse Resp BP Sys/Dixon Pulse Ox Last 24 Hr 98.3 F-98.7 F 79-89 20-20 150-176/81-91 95-98 GENERAL: No acute distress. HEAD: Normal with no signs of trauma. EYES: EOMI Sclera Clear ENT: MMM NECK: Trachea midline, full range of motion, supple. LUNGS: CTAB No wheezing rales or rhonchi HEART: RRR No MRG S1S2 ABDOMEN: No facial grimacing to deep palpation. BS+. EXTREMITIES: No CCE SKIN: Warm to touch Laboratory Results - last 24 hr 07/10/20 07/11/20 07/11/20 20:42 05:34 10:09 WBC 13.4 H RBC 4.90 Hgb 12.7 Hct 39.7 MCV 81.1 MCH 25.9 MCHC 31.9 L RDW 15.1 Plt Count 383 D MPV 7.3 L Absolute Neuts (auto) 10.0 H Neutrophils % 74.4 Neutrophils % (Manual) 70.1 Band Neutrophils % 0.0 Lymphocytes % 10.6 D Lymphocytes % (Manual) 11.4 D Monocytes % 14.0 H D Monocytes % (Manual) 13 H D Eosinophils % 0.6 D Eosinophils % (Manual) 1.0 D Basophils % 0.4 Basophils % (Manual) 0.0 Myelocytes % (Man) 0 Promyelocytes % (Man) 0 Blast Cells % (Manual) 0 Nucleated RBC % 1 H Metamyelocytes 0 Hypochromia 0 Platelet Estimate Normal Polychromasia 0 Poikilocytosis 1+ Anisocytosis 1+ Microcytosis 1+ Macrocytosis 1+ Spherocytes 1+ Ovalocytes 1+ Sodium Potassium Chloride Carbon Dioxide Anion Gap BUN Creatinine Est GFR (CKD-EPI)AfAm Est GFR (CKD-EPI)NonAf POC Glucometer 171 162 Random Glucose Calcium 07/11/20 07/11/20 07/11/20 10:09 11:01 17:13 WBC RBC Hgb Hct MCV MCH MCHC RDW Plt Count MPV Absolute Neuts (auto) Neutrophils % Neutrophils % (Manual) Band Neutrophils % Lymphocytes % Lymphocytes % (Manual) Monocytes % Monocytes % (Manual) Eosinophils % Eosinophils % (Manual) Basophils % Basophils % (Manual) Myelocytes % (Man) Promyelocytes % (Man) Blast Cells % (Manual) Nucleated RBC % Metamyelocytes Hypochromia Platelet Estimate Polychromasia Poikilocytosis Anisocytosis Microcytosis Macrocytosis Spherocytes Ovalocytes Sodium 135 L Potassium 3.8 Chloride 101 Carbon Dioxide 26 Anion Gap 8 BUN 13.8 Creatinine 1.1 Est GFR (CKD-EPI)AfAm 80.08 Est GFR (CKD-EPI)NonAf 69.10 POC Glucometer 119 147 Random Glucose 148 H Calcium 8.8 Active Medications Generic Name Dose Route Start Last Admin Trade Name Freq PRN Reason Stop Dose Admin Acetaminophen 650 mg 07/08/20 18:26 07/09/20 15:46 Tylenol - PO 650 mg Q4H PRN Administration PAIN LEVEL 1-5 Amlodipine Besylate 10 mg 07/09/20 10:00 07/11/20 09:26 Norvasc - PO 10 mg DAILY [facility] Administration Bisacodyl 10 mg 07/08/20 14:52 Dulcolax Suppository - [place] DAILY PRN CONSTIPATION Docusate Sodium 100 mg 07/08/20 14:00 07/11/20 13:08 Colace - PO Not Given TID [facility] Heparin Sodium (Porcine) 5,000 unit 07/07/20 06:00 07/11/20 13:08 Heparin - SQ 5,000 unit TID [facility] Administration Piperacillin Sod/Tazobactam 100 mls @ 200 mls/hr 07/07/20 18:00 07/11/20 17:18 Sod 4.5 gm/ Dextrose IVPB 200 mls/hr Q8H-IV [facility] Administration Protocol Insulin Aspart 1 vial 07/06/20 22:00 07/11/20 17:14 Novolog Vial Sliding Scale - SQ Not Given ACHS [facility] Protocol Losartan Potassium 100 mg 07/11/20 08:28 07/11/20 09:27 Cozaar - PO 100 mg DAILY [facility] Administration Metoprolol Succinate 50 mg 07/09/20 10:00 07/11/20 09:26 Toprol Xl - PO 50 mg DAILY [facility] Administration ASSESSMENT/PLAN: 65-year-old male who presented 1 day after ureteroscopic laser lithotripsy and stent insertion for renal calculus with severe sepsis and WALI. #Severe sepsis with bacteremia status post lithotripsy and ureteral stent insertion Blood cultures positive for gram-negative rods in 1 out of 2 bottles. WBC trending downwards. Afebrile overnight. Continue to trend WBC On Zosyn day 5. Will require a total of 14 days of IV ABx per ID. Will try to arrange for PICC line tomorrow. Fluids ID and urology on board. #WALI: -Resolved. Cr 1.1 today. #Incidentally found lung nodule 3-month follow-up after discharge #Diabetes mellitus Sliding scale Hold home metformin #FEN NS@100cc/hr Monitor Electrolytes Diabetic/Sodium diet #DVT ppx: HEPSQTID #Dispo: Med-Surg Visit type - Emergency Visit Emergency Visit: Yes ED Registration Date: 07/06/20 Care time: The patient presented to the Emergency Department on the above date and was hospitalized for further evaluation of their emergent condition. - New Patient This patient is new to me today: No - Critical Care Critical Care patient: No - Discharge Referral Referred to [facility] Med P.C[facility] No - Medication Review Med list reviewed for High Risk Meds patients 65 and older: Yes ATTENDING PHYSICIAN STATEMENT I saw and evaluated the patient. I reviewed the resident's note and discussed the case with the resident. I agree with the resident's findings and plan as documented. SUBJECTIVE: OBJECTIVE: ASSESSMENT AND PLAN:
[2020-07-11] MEDS: ACETAMINOPHEN 325 MG TABLET (FP) PO PRN (21:01)
[2020-07-12] MEDS ORDERED: DEXTROSE 5%-WATER 100 ML IVPB ONE ×3 (02:28→19:00)
[2020-07-12] MEDS ORDERED: PIPERACILLIN/TAZOBACTAM 4.5 GM VIAL IVPB ONE ×3 (02:28→19:00)
[2020-07-12] MEDS: PIPERACILLIN/TAZOB 4.5 GM 4.5 GM in DEXTROSE 5%-WATER 100 ML IVPB SCH ×3 (02:32→19:13)
[2020-07-12] MEDS: HEPARIN NA (PORCINE) 5,000 UNITS/ML 1ML VIAL SQ SCH ×3 (05:37→21:21)
[2020-07-12] MEDS: DOCUSATE SODIUM 100 MG CAPSULE (FP) PO SCH ×3 (05:40→21:01)
[2020-07-12] MEDS: INSULIN SLIDING SCALE (NOVOLOG) 1 VIAL SQ SCH ×4 (06:45→21:23)
[2020-07-12] MEDS ORDERED: INSULIN (NOVOLOG) ASPART 100 UNITS/ML 10ML VIAL ONE (07:08)
[2020-07-12 08:15] LABS: HEMATOCRIT 38.8 % (35.4-49); HEMOGLOBIN 12.5 GM/dL (11.7-16.9); MCH 26.4 pg (25.7-33.7); MCHC 32.3 g/dl (32.0-35.9); MEAN CELL VOLUME 81.8 fl (80-96); MEAN PLT VOLUME 7.4 fl (7.5-11.1); PLATELET COUNT 396 K/MM3 (134-434); RBC 4.75 M/mm3 (4.00-5.60); RDW 15.4 % (11.9-15.9); WHITE BLOOD COUNT 15.9 K/mm3 (4.0-10.0)
[2020-07-12 08:37] LABS: CALCIUM 8.8 mg/dL (8.5-10.1); CREATININE 1.2 mg/dL (0.55-1.3); MAGNESIUM 2.5 mg/dL (1.8-2.4); PHOSPHOROUS 3.2 mg/dL (2.5-4.9); POTASSIUM 4.1 mmol/L (3.5-5.1)
[2020-07-12] MEDS: amLODIPine BESYLATE 10 MG TABLET (FP) PO SCH (10:20)
[2020-07-12] MEDS: LOSARTAN POTASSIUM 50 MG TABLET PO SCH (10:21)
--- NOTE | 2020-07-12 13:26 | PN ---
Teaching Attending Note Name of Resident: Wei Lindsey ATTENDING PHYSICIAN STATEMENT I saw and evaluated the patient. I reviewed the resident's note and discussed the case with the resident. I agree with the resident's findings and plan as documented. SUBJECTIVE: Seen and examined at bedside. Patient reports feeling well. No complaints. Wh ite count noted to be up trending from approximately 11-15 over the last 2 days despite antibiotics. Follow-up cultures pending. Afebrile OBJECTIVE Last Vital Signs Temp Pulse Resp BP Pulse Ox 98.4 F 78 20 157/81 96 07/12/20 10:00 07/12/20 10:00 07/12/20 10:00 07/12/20 10:00 07/12/20 10:00 PE: Per resident note Labs/Imaging: reviewed ASSESSMENT/PLAN 65-year-old male who presented 1 day after ureteroscopic laser lithotripsy and stent insertion for renal calculus with severe sepsis and WALI. #Severe sepsis with bacteremia status post lithotripsy and ureteral stent insertion: cx+ for pseudomonas Blood and urine cultures positive for pseudomonas On Zosyn Fluids ID and urology on board: Appreciate recommendations #Bowel obstruction: resolved #WALI: Postobstructive vs prerenal: resolved Hydronephrosis seen on CT scan, possibly secondary to stent malfunction? Also possibly prerenal in the setting of sepsis Fluids #Incidentally found lung nodule 3-month follow-up after discharge #Diabetes mellitus Sliding scale Hold home metformin
--- NOTE | 2020-07-12 14:20 | PN ---
Progress Note (short form) - Note Progress Note: small amount of frequent stools Vital Signs Period Temp Pulse Resp BP Sys/Dixon Pulse Ox Last 24 Hr 98.3 F-99.1 F 78-88 18-20 129-161/77-90 93-98 cor-rrr lungs clear abd soft, +right groin discomfort ext no edema CBC, BMP 07/12/20 07:00 07/12/20 07:00 Microbiology 07/12/20 02:25 Stool Clostridioides difficile Antigen - Final- negative 07/12/20 02:25 Stool Clostridioides difficile Toxin Assay - Final-negative 07/11/20 13:40 Blood - Peripheral Venous Blood Culture - Preliminary NO GROWTH OBTAINED AFTER 24 HOURS, INCUBATION TO CONTINUE FOR 4 DAYS. 07/11/20 13:30 Blood - Peripheral Venous Blood Culture - Preliminary NO GROWTH OBTAINED AFTER 24 HOURS, INCUBATION TO CONTINUE FOR 4 DAYS. 07/06/20 17:15 Urine - Urine Clean Catch Urine Culture - Final Pseudomonas Aeruginosa 07/06/20 13:18 Blood - Peripheral Venous Blood Culture - Final Pseudomonas Aeruginosa 07/06/20 13:18 Blood - Peripheral Venous Blood Culture - Final Pseudomonas Aeruginosa a/p rleukocytosis pseudomonas bacteremia/UTI continue zosyn day #6 informed by nurse that stent was removed by urologist several days ago! will repeat kidney sonogram to r/o hydronephrosis ?etiology right groin pain- if sono unrevealing may need to repeat ct scan abd/pelvis repeat blood cultures pending constipation- s/p cva with aphasia and right hemiparesis Problem List - Problems (1) Sepsis Code(s): A41.9 - SEPSIS, UNSPECIFIED ORGANISM (2) UTI (urinary tract infection) Code(s): N39.0 - URINARY TRACT INFECTION, SITE NOT SPECIFIED (3) WALI (acute kidney injury) Code(s): N17.9 - ACUTE KIDNEY FAILURE, UNSPECIFIED (4) Abdominal distension Code(s): R14.0 - ABDOMINAL DISTENSION (GASEOUS)
[2020-07-12] MEDS: MINERAL OIL/PET HY-PHL TOPICAL OINTMENT 454 GM JAR TP SCH (15:22)
--- NOTE | 2020-07-12 19:18 | PN ---
Physical Exam: SUBJECTIVE: Patient seen and examined at bedside. No fevers overnight. WBC today elevated at 15.8. OBJECTIVE: Vital Signs Period Temp Pulse Resp BP Sys/Dixon Pulse Ox Last 24 Hr 98.3 F-99.1 F 78-88 18-20 129-161/77-90 93-98 GENERAL: No acute distress. HEAD: Normal with no signs of trauma. EYES: EOMI Sclera Clear ENT: MMM NECK: Trachea midline, full range of motion, supple. LUNGS: CTAB No wheezing rales or rhonchi HEART: RRR No MRG S1S2 ABDOMEN: Soft nondistended and nontender Bowel sounds + EXTREMITIES: No CCE SKIN: Warm to touch Laboratory Results - last 24 hr 07/11/20 07/12/20 07/12/20 21:05 06:41 07:00 WBC 15.9 H RBC 4.75 Hgb 12.5 Hct 38.8 MCV 81.8 MCH 26.4 MCHC 32.3 RDW 15.4 Plt Count 396 MPV 7.4 L Sodium Potassium Chloride Carbon Dioxide Anion Gap BUN Creatinine Est GFR (CKD-EPI)AfAm Est GFR (CKD-EPI)NonAf POC Glucometer 131 205 Random Glucose Calcium Phosphorus Magnesium 07/12/20 07/12/20 07:00 12:41 WBC RBC Hgb Hct MCV MCH MCHC RDW Plt Count MPV Sodium 132 L Potassium 4.1 Chloride 99 Carbon Dioxide 26 Anion Gap 7 L BUN 20.0 H Creatinine 1.2 Est GFR (CKD-EPI)AfAm 72.09 Est GFR (CKD-EPI)NonAf 62.20 POC Glucometer 143 Random Glucose 157 H Calcium 8.8 Phosphorus 3.2 Magnesium 2.5 H Active Medications Generic Name Dose Route Start Last Admin Trade Name Freq PRN Reason Stop Dose Admin Acetaminophen 650 mg 07/08/20 18:26 07/11/20 21:01 Tylenol - PO 650 mg Q4H PRN Administration PAIN LEVEL 1-5 Amlodipine Besylate 10 mg 07/09/20 10:00 07/12/20 10:20 Norvasc - PO 10 mg DAILY [facility] Administration Bisacodyl 10 mg 07/08/20 14:52 Dulcolax Suppository - [facility] DAILY PRN CONSTIPATION Docusate Sodium 100 mg 07/08/20 14:00 07/12/20 13:46 Colace - PO Not Given TID [facility] Emollient Ointment 1 applic 07/12/20 12:00 07/12/20 15:22 Aquaphor - TP 1 applic DAILY [facility] Administration Heparin Sodium (Porcine) 5,000 unit 07/07/20 06:00 07/12/20 15:23 Heparin - SQ 5,000 unit TID [facility] Administration Piperacillin Sod/Tazobactam 100 mls @ 200 mls/hr 07/07/20 18:00 07/12/20 19:13 Sod 4.5 gm/ Dextrose IVPB 200 mls/hr Q8H-IV [facility] Administration Protocol Insulin Aspart 1 vial 07/06/20 22:00 07/12/20 18:00 Novolog Vial Sliding Scale - SQ 2 units ACHS [facility] Administration Protocol Losartan Potassium 100 mg 07/11/20 08:28 07/12/20 10:21 Cozaar - PO 100 mg DAILY [facility] Administration Metoprolol Succinate 50 mg 07/09/20 10:00 07/12/20 10:20 Toprol Xl - PO 50 mg DAILY [facility] Administration ASSESSMENT/PLAN: 65-year-old male who presented 1 day after ureteroscopic laser lithotripsy and stent insertion for renal calculus with severe sepsis and WALI. #Severe sepsis with bacteremia status post lithotripsy and ureteral stent insertion Blood cultures positive for gram-negative rods in 1 out of 2 bottles. WBC trending downwards. Afebrile overnight. Continue to trend WBC. Repeat BCx negative On Zosyn day 6. Will require a total of 14 days of IV ABx per ID. WBC today elevated at 15.2. Continue to trend ID and urology on board. #WALI: -Resolved. Cr 1.2 today. #Incidentally found lung nodule 3-month follow-up after discharge #Diabetes mellitus Sliding scale Hold home metformin #FEN No fluids Monitor Electrolytes Diabetic/Sodium diet #DVT ppx: HEPSQTID #Dispo: Med-Surg Visit type - Emergency Visit Emergency Visit: Yes ED Registration Date: 07/06/20 Care time: The patient presented to the Emergency Department on the above date and was hospitalized for further evaluation of their emergent condition. - New Patient This patient is new to me today: No - Critical Care Critical Care patient: No - Discharge Referral Referred to [facility] Med P.C.: No - Medication Review Med list reviewed for High Risk Meds patients 65 and older: Yes ATTENDING PHYSICIAN STATEMENT I saw and evaluated the patient. I reviewed the resident's note and discussed the case with the resident. I agree with the resident's findings and plan as documented. SUBJECTIVE: OBJECTIVE: ASSESSMENT AND PLAN:
[2020-07-12] MEDS: ACETAMINOPHEN 325 MG TABLET (FP) PO PRN (21:21)
[2020-07-13] MEDS ORDERED: PIPERACILLIN/TAZOBACTAM 4.5 GM VIAL IVPB ONE ×3 (01:46→16:34)
[2020-07-13] MEDS ORDERED: DEXTROSE 5%-WATER 100 ML IVPB ONE ×3 (01:46→16:34)
[2020-07-13] MEDS: PIPERACILLIN/TAZOB 4.5 GM 4.5 GM in DEXTROSE 5%-WATER 100 ML IVPB SCH ×3 (02:49→17:57)
[2020-07-13] MEDS: DOCUSATE SODIUM 100 MG CAPSULE (FP) PO SCH ×3 (05:18→21:12)
[2020-07-13] MEDS: HEPARIN NA (PORCINE) 5,000 UNITS/ML 1ML VIAL SQ SCH ×3 (05:55→21:15)
[2020-07-13] MEDS: INSULIN SLIDING SCALE (NOVOLOG) 1 VIAL SQ SCH ×4 (06:01→21:14)
[2020-07-13 08:46] LABS: HEMATOCRIT 36.7 % (35.4-49); MCH 26.5 pg (25.7-33.7); MCHC 32.6 g/dl (32.0-35.9); MEAN CELL VOLUME 81.4 fl (80-96); MEAN PLT VOLUME 7.2 fl (7.5-11.1); PLATELET COUNT 462 K/MM3 (134-434); RBC 4.51 M/mm3 (4.00-5.60); RDW 15.1 % (11.9-15.9); WHITE BLOOD COUNT 18.7 K/mm3 (4.0-10.0)
[2020-07-13 08:55] LABS: BLOOD UREA NITROGEN 19.7 mg/dL (7-18); CALCIUM 8.3 mg/dL (8.5-10.1); CREATININE 1.3 mg/dL (0.55-1.3); MAGNESIUM 2.4 mg/dL (1.8-2.4); PHOSPHOROUS 3.1 mg/dL (2.5-4.9); POTASSIUM 4.4 mmol/L (3.5-5.1)
[2020-07-13] MEDS: amLODIPine BESYLATE 10 MG TABLET (FP) PO SCH (11:01)
[2020-07-13] MEDS: LOSARTAN POTASSIUM 50 MG TABLET PO SCH (11:02)
[2020-07-13] MEDS: MINERAL OIL/PET HY-PHL TOPICAL OINTMENT 454 GM JAR TP SCH (11:03)
--- NOTE | 2020-07-13 11:08 | PN ---
Progress Note (short form) - Note Progress Note: low grade temp overnight no abdominal pain today groin/thigh pain resolved as well sono with mild right hydronephsosis no sob, no leg swelling Vital Signs Period Temp Pulse Resp BP Sys/Dixon Pulse Ox Last 24 Hr 98.3 F-100.3 F 79-91 20-20 129-158/72-84 94-96 cor-rrr llungs clear abd soft, mildly distended, +BS, nontender ext no edema CBC, BMP 07/13/20 08:05 07/13/20 08:05 Microbiology 07/12/20 02:25 Stool Clostridioides difficile Antigen - Final 07/12/20 02:25 Stool Clostridioides difficile Toxin Assay - Final 07/11/20 13:40 Blood - Peripheral Venous Blood Culture - Preliminary NO GROWTH OBTAINED AFTER 24 HOURS, INCUBATION TO CONTINUE FOR 4 DAYS. 07/11/20 13:30 Blood - Peripheral Venous Blood Culture - Preliminary NO GROWTH OBTAINED AFTER 24 HOURS, INCUBATION TO CONTINUE FOR 4 DAYS. 07/06/20 17:15 Urine - Urine Clean Catch Urine Culture - Final Pseudomonas Aeruginosa 07/06/20 13:18 Blood - Peripheral Venous Blood Culture - Final Pseudomonas Aeruginosa 07/06/20 13:18 Blood - Peripheral Venous Blood Culture - Final Pseudomonas Aeruginosa sono- mild right hydro a/p leukocytosis/low grade temp despite zosyn day #7 pseudomonas bacteremia/UTI continue zosyn day #[address] scan abd/pelvis- repeat blood cultures negative constipation- s/p cva with aphasia and right hemiparesis d/w hospitalist Problem List - Problems (1) Sepsis Code(s): A41.9 - SEPSIS, UNSPECIFIED ORGANISM (2) UTI (urinary tract infection) Code(s): N39.0 - URINARY TRACT INFECTION, SITE NOT SPECIFIED (3) WALI (acute kidney injury) Code(s): N17.9 - ACUTE KIDNEY FAILURE, UNSPECIFIED (4) Abdominal distension Code(s): R14.0 - ABDOMINAL DISTENSION (GASEOUS)
[2020-07-13 11:24] VITALS: BMI 25.8
--- NOTE | 2020-07-13 13:28 | PN ---
Teaching Attending Note Name of Resident: Wei Lindsey ATTENDING PHYSICIAN STATEMENT I saw and evaluated the patient. I reviewed the resident's note and discussed the case with the resident. I agree with the resident's findings and plan as documented. SUBJECTIVE: Seen and examined at bedside. Patient with fever to 100.3 overnight. White cou nt has continued to increase despite day 7 on Zosyn. C. difficile negative. Repeat cultures so far negative. Repeat CT abdomen pelvis shows numerous nonobstructing right renal calculi as well as mild right-sided hydronephrosis and hydroureter without obvious obstruction and thickening of gastric antrum and proximal duodenum with mild inflammatory changes suspicious for gastritis/duodenitis. OBJECTIVE Last Vital Signs Temp Pulse Resp BP Pulse Ox 99.7 F H 91 H 20 146/72 95 07/13/20 05:23 07/13/20 05:23 07/13/20 05:23 07/13/20 05:23 07/13/20 05:23 PE: Per resident note Labs/Imaging: reviewed ASSESSMENT/PLAN 65-year-old male who presented 1 day after ureteroscopic laser lithotripsy and stent insertion for renal calculus with severe sepsis and WALI. #Severe sepsis with bacteremia status post lithotripsy and ureteral stent insertion: cx+ for pseudomonas Imaging viewed with radiology. Significant interval improvements in inflammation around right kidney. Multiple small stones in R kidney but no obvious obstruction Blood and urine cultures positive for pseudomonas On Zosyn Fluids ID and urology on board: Appreciate recommendations #duodenitis/gastritis? -will start pantoprazole. If pt becomes symptomatic or WBC continues to rise will have to consider cscope #WALI: Postobstructive vs prerenal: resolved Hydronephrosis seen on CT scan, possibly secondary to stent malfunction? Also possibly prerenal in the setting of sepsis Fluids #Incidentally found lung nodule 3-month follow-up after discharge #Diabetes mellitus Sliding scale Hold home metformin
[2020-07-13] MEDS: PANTOPRAZOLE 40 MG TABLET PO SCH (14:26)
--- NOTE | 2020-07-13 19:37 | PN ---
Physical Exam: SUBJECTIVE: Patient seen and examined at bedside. 100.3 Temp yesterday evening. OBJECTIVE: Vital Signs Period Temp Pulse Resp BP Sys/Dixon Pulse Ox Last 24 Hr 98.6 F-100.3 F 76-91 16-20 146-158/72-84 95-98 GENERAL: NAD AAOx3 HEAD: Atraumatic/Normocephalic EYES: EOMI Sclera Clear ENT: MMM NECK: Trachea midline, full range of motion, supple. LUNGS: CTAB No wheezing rales or rhonchi HEART: RRR No MRG S1S2 ABDOMEN: Soft nondistended and nontender Bowel sounds + EXTREMITIES: No CCE SKIN: Warm to touch Laboratory Results - last 24 hr 07/12/20 07/12/20 07/13/20 17:59 21:18 05:54 WBC RBC Hgb Hct MCV MCH MCHC RDW Plt Count MPV Sodium Potassium Chloride Carbon Dioxide Anion Gap BUN Creatinine Est GFR (CKD-EPI)AfAm Est GFR (CKD-EPI)NonAf POC Glucometer 189 216 167 Random Glucose Calcium Phosphorus Magnesium 07/13/20 07/13/20 07/13/20 08:05 08:05 12:37 WBC 18.7 H RBC 4.51 Hgb 12.0 Hct 36.7 MCV 81.4 MCH 26.5 MCHC 32.6 RDW 15.1 Plt Count 462 H MPV 7.2 L Sodium 133 L Potassium 4.4 Chloride 100 Carbon Dioxide 24 Anion Gap 8 BUN 19.7 H Creatinine 1.3 Est GFR (CKD-EPI)AfAm 65.44 Est GFR (CKD-EPI)NonAf 56.46 POC Glucometer 145 Random Glucose 168 H Calcium 8.3 L Phosphorus 3.1 Magnesium 2.4 07/13/20 17:15 WBC RBC Hgb Hct MCV MCH MCHC RDW Plt Count MPV Sodium Potassium Chloride Carbon Dioxide Anion Gap BUN Creatinine Est GFR (CKD-EPI)AfAm Est GFR (CKD-EPI)NonAf POC Glucometer 173 Random Glucose Calcium Phosphorus Magnesium Active Medications Generic Name Dose Route Start Last Admin Trade Name Freq PRN Reason Stop Dose Admin Acetaminophen 650 mg 07/08/20 18:26 07/12/20 21:21 Tylenol - PO 650 mg Q4H PRN Administration PAIN LEVEL 1-5 Amlodipine Besylate 10 mg 07/09/20 10:00 07/13/20 11:01 Norvasc - PO 10 mg DAILY LILIYA Administration Banana Based Medical Food 1 packet 07/13/20 22:00 Banatrol Plus Powder Packet PO TID LILIYA Bisacodyl 10 mg 07/08/20 14:52 Dulcolax Suppository - [place] DAILY PRN CONSTIPATION Docusate Sodium 100 mg 07/08/20 14:00 07/13/20 13:47 Colace - PO Not Given TID LILIYA Emollient Ointment 1 applic 07/12/20 12:00 07/13/20 11:03 Aquaphor - TP 1 applic DAILY LILIYA Administration Heparin Sodium (Porcine) 5,000 unit 07/07/20 06:00 07/13/20 14:25 Heparin - SQ 5,000 unit TID LILIYA Administration Piperacillin Sod/Tazobactam 100 mls @ 200 mls/hr 07/07/20 18:00 07/13/20 17:57 Sod 4.5 gm/ Dextrose IVPB 200 mls/hr Q8H-IV LILIYA Administration Protocol Insulin Aspart 1 vial 07/06/20 22:00 07/13/20 17:56 Novolog Vial Sliding Scale - SQ 2 units ACHS LILIYA Administration Protocol Losartan Potassium 100 mg 07/11/20 08:28 07/13/20 11:02 Cozaar - PO 100 mg DAILY LILIYA Administration Metoprolol Succinate 50 mg 07/09/20 10:00 07/13/20 11:01 Toprol Xl - PO 50 mg DAILY LILIYA Administration Pantoprazole Sodium 40 mg 07/13/20 14:00 07/13/20 14:26 Protonix - PO 40 mg DAILY LILIYA Administration ASSESSMENT/PLAN: 65-year-old male who presented 1 day after ureteroscopic laser lithotripsy and stent insertion for renal calculus with severe sepsis and WALI. #Severe sepsis with bacteremia status post lithotripsy and ureteral stent insertion Blood cultures positive for gram-negative rods in 1 out of 2 bottles. WBC trending downwards. Afebrile overnight. Continue to trend WBC. Repeat BCx negative On Zosyn day 7. Will require a total of 14 days of IV ABx per ID. WBC today elevated at 18.7. Continue to trend -Repeat CTAP today reveals moderate right hydro with no apparent obstruction. ID and urology on board. #WALI: -Resolved. Cr 1.3 today. #Incidentally found lung nodule 3-month follow-up after discharge #Diabetes mellitus Sliding scale Hold home metformin #FEN No fluids Monitor Electrolytes Diabetic/Sodium diet #DVT ppx: HEPSQTID #Dispo: Med-Surg Visit type - Emergency Visit Emergency Visit: Yes ED Registration Date: 07/06/20 Care time: The patient presented to the Emergency Department on the above date and was hospitalized for further evaluation of their emergent condition. - New Patient This patient is new to me today: No - Critical Care Critical Care patient: No - Discharge Referral Referred to [facility] Med P.C[facility] No - Medication Review Med list reviewed for High Risk Meds patients 65 and older: Yes ATTENDING PHYSICIAN STATEMENT I saw and evaluated the patient. I reviewed the resident's note and discussed the case with the resident. I agree with the resident's findings and plan as documented. SUBJECTIVE: OBJECTIVE: ASSESSMENT AND PLAN:
[2020-07-13] MEDS ORDERED: PT OWN MED DRAWER 7, Y5N ONE (21:08)
[2020-07-13] MEDS: BANATROL PLUS POWDER PACKET PO SCH (21:16)
[2020-07-14] MEDS ORDERED: PT OWN MED DRAWER 7, Y5N ONE ×4 (01:18→22:05)
[2020-07-14] MEDS ORDERED: PIPERACILLIN/TAZOBACTAM 4.5 GM VIAL IVPB ONE ×3 (01:19→16:48)
[2020-07-14] MEDS ORDERED: DEXTROSE 5%-WATER 100 ML IVPB ONE ×3 (01:19→16:48)
[2020-07-14] MEDS: PIPERACILLIN/TAZOB 4.5 GM 4.5 GM in DEXTROSE 5%-WATER 100 ML IVPB SCH ×3 (01:46→17:15)
[2020-07-14] MEDS: DOCUSATE SODIUM 100 MG CAPSULE (FP) PO SCH ×3 (05:24→22:23)
[2020-07-14] MEDS: BANATROL PLUS POWDER PACKET PO SCH ×3 (05:58→22:25)
[2020-07-14] MEDS: INSULIN SLIDING SCALE (NOVOLOG) 1 VIAL SQ SCH ×4 (06:03→22:23)
[2020-07-14 07:03] LABS: BASO % 0.3 % (0-2.0); EOS % 1.5 % (0-4.5); HEMATOCRIT 35.8 % (35.4-49); HEMOGLOBIN 11.7 GM/dL (11.7-16.9); MCH 26.9 pg (25.7-33.7); MCHC 32.6 g/dl (32.0-35.9); MEAN CELL VOLUME 82.4 fl (80-96); MEAN PLT VOLUME 6.8 fl (7.5-11.1); MONO % 9.9 % (3.8-10.2); NEUT % 76.3 % (42.8-82.8); PLATELET COUNT 479 K/MM3 (134-434); RBC 4.35 M/mm3 (4.00-5.60); RDW 15.4 % (11.9-15.9); WHITE BLOOD COUNT 17.5 K/mm3 (4.0-10.0)
[2020-07-14 07:30] LABS: BLOOD UREA NITROGEN 20.1 mg/dL (7-18); CALCIUM 8.7 mg/dL (8.5-10.1); CREATININE 1.5 mg/dL (0.55-1.3); MAGNESIUM 2.4 mg/dL (1.8-2.4); PHOSPHOROUS 3.5 mg/dL (2.5-4.9); POTASSIUM 4.8 mmol/L (3.5-5.1)
[2020-07-14] MEDS: PANTOPRAZOLE 40 MG TABLET PO SCH (09:03)
[2020-07-14] MEDS: amLODIPine BESYLATE 10 MG TABLET (FP) PO SCH (09:04)
[2020-07-14] MEDS: LOSARTAN POTASSIUM 50 MG TABLET PO SCH (09:04)
[2020-07-14] MEDS: MINERAL OIL/PET HY-PHL TOPICAL OINTMENT 454 GM JAR TP SCH (09:05)
[2020-07-14] MEDS ORDERED: INSULIN (NOVOLOG) ASPART 100 UNITS/ML 10ML VIAL ONE (12:14)
--- NOTE | 2020-07-14 12:50 | PN ---
Physical Exam: SUBJECTIVE: Patient seen and examined at bedside. No fevers overnight. Denies any abdominal pain or back pain. Does endorse right sided groin pain. OBJECTIVE: Vital Signs Period Temp Pulse Resp BP Sys/Dixon Pulse Ox Last 24 Hr 98.4 F-99.2 F 73-81 16-18 127-153/52-82 95-98 GENERAL: NAD AAOx3 HEAD: Atraumatic/Normocephalic EYES: EOMI Sclera Clear ENT: MMM NECK: Trachea midline, full range of motion, supple. LUNGS: CTAB No wheezing rales or rhonchi HEART: RRR No MRG S1S2 BACK: No CVA tenderness ABDOMEN: Soft nondistended and nontender Bowel sounds +. No guarding/rebound/rigidity. EXTREMITIES: No CCE SKIN: Warm to touch Laboratory Results - last 24 hr 07/13/20 07/13/20 07/14/20 17:15 21:14 06:00 WBC RBC Hgb Hct MCV MCH MCHC RDW Plt Count MPV Absolute Neuts (auto) Neutrophils % Lymphocytes % Monocytes % Eosinophils % Basophils % Nucleated RBC % Sodium Potassium Chloride Carbon Dioxide Anion Gap BUN Creatinine Est GFR (CKD-EPI)AfAm Est GFR (CKD-EPI)NonAf POC Glucometer 173 136 173 Random Glucose Calcium Phosphorus Magnesium C-Reactive Protein 07/14/20 07/14/20 07/14/20 06:25 06:25 12:04 WBC 17.5 H RBC 4.35 Hgb 11.7 Hct 35.8 MCV 82.4 MCH 26.9 MCHC 32.6 RDW 15.4 Plt Count 479 H MPV 6.8 L Absolute Neuts (auto) 13.3 H Neutrophils % 76.3 Lymphocytes % 12.0 Monocytes % 9.9 Eosinophils % 1.5 D Basophils % 0.3 Nucleated RBC % 0 Sodium 134 L Potassium 4.8 Chloride 100 Carbon Dioxide 29 Anion Gap 5 L BUN 20.1 H Creatinine 1.5 H Est GFR (CKD-EPI)AfAm 55.04 Est GFR (CKD-EPI)NonAf 47.49 POC Glucometer 155 Random Glucose 184 H Calcium 8.7 Phosphorus 3.5 Magnesium 2.4 C-Reactive Protein 1.7 H Active Medications Generic Name Dose Route Start Last Admin Trade Name Freq PRN Reason Stop Dose Admin Acetaminophen 650 mg 07/08/20 18:26 07/12/20 21:21 Tylenol - PO 650 mg Q4H PRN Administration PAIN LEVEL 1-5 Amlodipine Besylate 10 mg 07/09/20 10:00 07/14/20 09:04 Norvasc - PO 10 mg DAILY LILIYA Administration Banana Based Medical Food 1 packet 07/13/20 22:00 07/14/20 05:58 Banatrol Plus Powder Packet PO 1 packet TID LILIYA Administration Bisacodyl 10 mg 07/08/20 14:52 Dulcolax Suppository - [place] DAILY PRN CONSTIPATION Docusate Sodium 100 mg 07/08/20 14:00 07/14/20 05:24 Colace - PO Not Given TID [facility] Emollient Ointment 1 applic 07/12/20 12:00 07/14/20 09:05 Aquaphor - TP 1 applic DAILY LILIYA Administration Piperacillin Sod/Tazobactam 100 mls @ 200 mls/hr 07/07/20 18:00 07/14/20 09:04 Sod 4.5 gm/ Dextrose IVPB 200 mls/hr Q8H-IV LILIYA Administration Protocol Insulin Aspart 1 vial 07/06/20 22:00 07/14/20 12:18 Novolog Vial Sliding Scale - SQ 2 units ACHS LILIYA Administration Protocol Losartan Potassium 100 mg 07/11/20 08:28 07/14/20 09:04 Cozaar - PO 100 mg DAILY LILYIA Administration Metoprolol Succinate 50 mg 07/09/20 10:00 07/14/20 09:03 Toprol Xl - PO 50 mg DAILY LILIYA Administration Pantoprazole Sodium 40 mg 07/13/20 14:00 07/14/20 09:03 Protonix - PO 40 mg DAILY LILIYA Administration ASSESSMENT/PLAN: 65-year-old male who presented 1 day after ureteroscopic laser lithotripsy and stent insertion for renal calculus with severe sepsis and WALI. #Severe sepsis with bacteremia status post lithotripsy and ureteral stent insertion Blood cultures positive for gram-negative rods in 1 out of 2 bottles. WBC trending downwards. Afebrile overnight. Continue to trend WBC. Repeat BCx negative On Zosyn day 8. Will require a total of 14 days of IV ABx per ID. WBC today down today to 17.5. Continue to trend -Repeat CTAP today reveals moderate right hydro with no apparent obstruction. ID and urology on board. #WALI: -Resolved. Cr 1.5 today. #Incidentally found lung nodule 3-month follow-up after discharge #Diabetes mellitus Sliding scale Hold home metformin #FEN No fluids Monitor Electrolytes Diabetic/Sodium diet #DVT ppx: HEPSQTID #Dispo: Med-Surg Visit type - Emergency Visit Emergency Visit: Yes ED Registration Date: 07/06/20 Care time: The patient presented to the Emergency Department on the above date and was hospitalized for further evaluation of their emergent condition. - New Patient This patient is new to me today: No - Critical Care Critical Care patient: No - Discharge Referral Referred to [facility] Med P.C.: No - Medication Review Med list reviewed for High Risk Meds patients 65 and older: Yes ATTENDING PHYSICIAN STATEMENT I saw and evaluated the patient. I reviewed the resident's note and discussed the case with the resident. I agree with the resident's findings and plan as documented. SUBJECTIVE: OBJECTIVE: ASSESSMENT AND PLAN:
--- NOTE | 2020-07-14 13:26 | PN ---
Teaching Attending Note Name of Resident: Wei Lindsey ATTENDING PHYSICIAN STATEMENT I saw and evaluated the patient. I reviewed the resident's note and discussed the case with the resident. I agree with the resident's findings and plan as documented. SUBJECTIVE: Seen and examined at bedside. As well. Patient has no complaints or discomfort. Afebrile overnight, white count slowly trending down. Creatinine bumped up to 1.5 OBJECTIVE Last Vital Signs Temp Pulse Resp BP Pulse Ox 99.2 F 76 18 127/52 L 95 07/14/20 09:00 07/14/20 09:00 07/14/20 09:00 07/14/20 09:00 07/14/20 09:00 PE: Per resident note Labs/Imaging: reviewed ASSESSMENT/PLAN 65-year-old male who presented 1 day after ureteroscopic laser lithotripsy and stent insertion for renal calculus with severe sepsis and WALI. #Severe sepsis with bacteremia status post lithotripsy and ureteral stent insertion: cx+ for pseudomonas Imaging viewed with radiology. Significant interval improvements in inflammation around right kidney. Multiple small stones in R kidney but no obvious obstruction Blood and urine cultures positive for pseudomonas On Zosyn Fluids ID and urology on board: Appreciate recommendations #WALI: Postobstructive vs prerenal: resolved now worsening restart Fluids -hold losartan -if continues to uptrend call urology tomorrow #duodenitis/gastritis? -cont pantoprazole. If pt becomes symptomatic or WBC continues to rise will have to consider cscope #Incidentally found lung nodule 3-month follow-up after discharge #Diabetes mellitus Sliding scale Hold home metformin
--- NOTE | 2020-07-14 13:53 | PN ---
Progress Note (short form) - Note Progress Note: no fevers no abdominal pain ct scan with duodenitis- started on PPI yesterday Vital Signs Period Temp Pulse Resp BP Sys/Dixon Pulse Ox Last 24 Hr 98.4 F-99.2 F 69-81 18-20 98-152/50-76 95-98 cor-rrr lungs clear abd soft,nt ext no edema CBC, BMP 07/14/20 06:25 07/14/20 06:25 Microbiology 07/11/20 13:40 Blood - Peripheral Venous Blood Culture - Preliminary NO GROWTH OBTAINED AFTER 72 HOURS, INCUBATION TO CONTINUE FOR 2 DAYS. 07/11/20 13:30 Blood - Peripheral Venous Blood Culture - Preliminary NO GROWTH OBTAINED AFTER 72 HOURS, INCUBATION TO CONTINUE FOR 2 DAYS. 07/12/20 02:25 Stool Clostridioides difficile Antigen - Final 07/12/20 02:25 Stool Clostridioides difficile Toxin Assay - Final 07/06/20 17:15 Urine - Urine Clean Catch Urine Culture - Final Pseudomonas Aeruginosa 07/06/20 13:18 Blood - Peripheral Venous Blood Culture - Final Pseudomonas Aeruginosa 07/06/20 13:18 Blood - Peripheral Venous Blood Culture - Final Pseudomonas Aeruginosa sono- mild right hydro ct scan reviewed with radiology yesterday and d/w hospitalist a/p leukocytosis-starting to trend down- zosyn day #8 pseudomonas bacteremia/UTI repeat blood cultures negative f/u with urology s/p cva with aphasia and right hemiparesis Problem List - Problems (1) Sepsis Code(s): A41.9 - SEPSIS, UNSPECIFIED ORGANISM (2) UTI (urinary tract infection) Code(s): N39.0 - URINARY TRACT INFECTION, SITE NOT SPECIFIED (3) WALI (acute kidney injury) Code(s): N17.9 - ACUTE KIDNEY FAILURE, UNSPECIFIED (4) Abdominal distension Code(s): R14.0 - ABDOMINAL DISTENSION (GASEOUS)
[2020-07-14] MEDS: SODIUM CHLORIDE 1,000 ML IV SCH (14:00)
[2020-07-15] MEDS: PIPERACILLIN/TAZOB 4.5 GM 4.5 GM in DEXTROSE 5%-WATER 100 ML IVPB SCH ×3 (01:52→18:14)
[2020-07-15] MEDS: SODIUM CHLORIDE 1,000 ML IV SCH ×2 (03:50→18:18)
[2020-07-15] MEDS: DOCUSATE SODIUM 100 MG CAPSULE (FP) PO SCH ×3 (06:27→21:13)
[2020-07-15] MEDS: BANATROL PLUS POWDER PACKET PO SCH ×3 (06:33→21:13)
[2020-07-15] MEDS: INSULIN SLIDING SCALE (NOVOLOG) 1 VIAL SQ SCH ×4 (06:35→21:17)
[2020-07-15 07:36] LABS: BASO % 0.5 % (0-2.0); EOS % 1.6 % (0-4.5); HEMATOCRIT 33.2 % (35.4-49); HEMOGLOBIN 10.9 GM/dL (11.7-16.9); MCH 27.3 pg (25.7-33.7); MCHC 32.9 g/dl (32.0-35.9); MEAN CELL VOLUME 82.9 fl (80-96); MEAN PLT VOLUME 6.8 fl (7.5-11.1); MONO % 9.4 % (3.8-10.2); NEUT % 78.5 % (42.8-82.8); PLATELET COUNT 482 K/MM3 (134-434); RBC 4.01 M/mm3 (4.00-5.60); RDW 15.7 % (11.9-15.9); WHITE BLOOD COUNT 20.1 K/mm3 (4.0-10.0)
[2020-07-15 08:04] LABS: BLOOD UREA NITROGEN 16.9 mg/dL (7-18); CALCIUM 8.2 mg/dL (8.5-10.1); CREATININE 1.5 mg/dL (0.55-1.3); MAGNESIUM 2.3 mg/dL (1.8-2.4); PHOSPHOROUS 3.1 mg/dL (2.5-4.9); POTASSIUM 4.6 mmol/L (3.5-5.1)
[2020-07-15 09:16] LABS: ANISOCYTOSIS 2+; MACROCYTOSIS 0; PLATELET ESTIMATE NORMAL
--- NOTE | 2020-07-15 09:20 | PN ---
Progress Note (short form) - Note Progress Note: no fevers recurrent Left groin disomfort ct scan with duodenitis- started on PPI nurse reports frequent stools (loose) Vital Signs Period Temp Pulse Resp BP Sys/Dixon Pulse Ox Last 24 Hr 98.3 F-99.1 F 64-82 20-20 98-151/50-86 95-99 cor-rrr lungs clear abd soft,nt right groin disomfort ext no edema CBC, BMP 07/15/20 06:50 07/15/20 06:50 Microbiology 07/11/20 13:40 Blood - Peripheral Venous Blood Culture - Preliminary NO GROWTH OBTAINED AFTER 72 HOURS, INCUBATION TO CONTINUE FOR 2 DAYS. 07/11/20 13:30 Blood - Peripheral Venous Blood Culture - Preliminary NO GROWTH OBTAINED AFTER 72 HOURS, INCUBATION TO CONTINUE FOR 2 DAYS. 07/12/20 02:25 Stool Clostridioides difficile Antigen - Final 07/12/20 02:25 Stool Clostridioides difficile Toxin Assay - Final 07/06/20 17:15 Urine - Urine Clean Catch Urine Culture - Final Pseudomonas Aeruginosa 07/06/20 13:18 Blood - Peripheral Venous Blood Culture - Final Pseudomonas Aeruginosa 07/06/20 13:18 Blood - Peripheral Venous Blood Culture - Final Pseudomonas Aeruginosa sono- mild right hydro ct scan reviewed with radiology yesterday and d/w hospitalist a/p leukocytosis-starting to trend down- zosyn day #9 pseudomonas bacteremia/UTI repeat blood cultures negative f/u with urology repeat stool cdiff today stool guaic s/p cva with aphasia and right hemiparesis d/w hospitalist Problem List - Problems (1) Sepsis Code(s): A41.9 - SEPSIS, UNSPECIFIED ORGANISM (2) UTI (urinary tract infection) Code(s): N39.0 - URINARY TRACT INFECTION, SITE NOT SPECIFIED (3) WALI (acute kidney injury) Code(s): N17.9 - ACUTE KIDNEY FAILURE, UNSPECIFIED (4) Abdominal distension Code(s): R14.0 - ABDOMINAL DISTENSION (GASEOUS)
[2020-07-15] MEDS ORDERED: PIPERACILLIN/TAZOBACTAM 4.5 GM VIAL IVPB ONE ×2 (10:29→18:04)
[2020-07-15] MEDS ORDERED: DEXTROSE 5%-WATER 100 ML IVPB ONE ×2 (10:29→18:04)
[2020-07-15] MEDS: amLODIPine BESYLATE 10 MG TABLET (FP) PO SCH (10:33)
[2020-07-15] MEDS: PANTOPRAZOLE 40 MG TABLET PO SCH (10:33)
[2020-07-15] MEDS: MINERAL OIL/PET HY-PHL TOPICAL OINTMENT 454 GM JAR TP SCH (10:35)
--- NOTE | 2020-07-15 12:43 | PN ---
Progres Note Chief Complaint: R sided abd pain, diarrhea History of Present Illness: c/o diarrhea , R abd pain, voids well - Objective Vital Signs: Vital Signs Temperature 98.6 F 07/15/20 06:00 Pulse Rate 81 07/15/20 06:00 Respiratory Rate 20 07/15/20 06:00 Blood Pressure 135/71 07/15/20 06:00 O2 Sat by Pulse Oximetry (%) 96 07/15/20 06:00 Gastrointestinal: Yes: Normal Bowel Sounds, Soft Genitourinary: Yes: WNL Kidneys: No: Flank Pain Left, FLank Pain Right Pelvis: Yes: Bladder Non Palpable Testicles: Yes: WNL Scrotum: Yes: WNL Penis: Yes: WNL Labs/Additional Data: CBC, BMP 07/15/20 06:50 07/15/20 06:50 INR, PTT INR 1.24 (0.83-1.09) H 07/06/20 13:18 Imaging - Results Cat Scan: Report Reviewed Problem List - Problems (1) Sepsis Code(s): A41.9 - SEPSIS, UNSPECIFIED ORGANISM (2) UTI (urinary tract infection) Assessment/Plan: rpt ur cx, cont iv abxs Code(s): N39.0 - URINARY TRACT INFECTION, SITE NOT SPECIFIED (3) Diarrhea Assessment/Plan: rpt stool for c diff. Code(s): R19.7 - DIARRHEA, UNSPECIFIED
--- NOTE | 2020-07-15 14:04 | PN ---
Teaching Attending Note Name of Resident: Wei Lindsey ATTENDING PHYSICIAN STATEMENT I saw and evaluated the patient. I reviewed the resident's note and discussed the case with the resident. I agree with the resident's findings and plan as documented. Seen and examined at bedside. White count now greater than 20. Patient has right lower abdominal tenderness around the site of the UV junction. Continues to have diarrhea. C. difficile reordered and urology asked to reevaluate the patient OBJECTIVE Last Vital Signs Temp Pulse Resp BP Pulse Ox 98.6 F 81 20 135/71 96 07/15/20 06:00 07/15/20 06:00 07/15/20 06:00 07/15/20 06:00 07/15/20 06:00 PE: Per resident note Labs/Imaging: reviewed ASSESSMENT/PLAN 65-year-old male who presented 1 day after ureteroscopic laser lithotripsy and stent insertion for renal calculus with severe sepsis and WALI. #Severe sepsis with bacteremia status post lithotripsy and ureteral stent insertion: cx+ for pseudomonas Imaging viewed with radiology. Significant interval improvements in inflammation around right kidney. Multiple small stones in R kidney but no obvious obstruction Blood and urine cultures positive for pseudomonas On Zosyn Fluids ID and urology on board: Appreciate recommendations #WALI: Postobstructive vs prerenal: resolved now worsening restart Fluids -hold losartan -if continues to uptrend call urology tomorrow #duodenitis/gastritis? -cont pantoprazole. If pt becomes symptomatic or WBC continues to rise will have to consider cscope #Incidentally found lung nodule 3-month follow-up after discharge #Diabetes mellitus Sliding scale Hold home metformin
[2020-07-15] MEDS ORDERED: PT OWN MED DRAWER 7, Y5N ONE ×2 (15:33→21:07)
[2020-07-15 17:17] LABS: EPI CELLS 9 /uL (0-25.1); HYALINE CASTS 0 /uL (0-3.1); URINE APPEARANCE CLEAR; URINE BACTERIA 3 /uL (0-1359); URINE BILIRUBIN NEGATIVE (NEGATIVE); URINE COLOR YELLOW; URINE GLUCOSE (UA) NEGATIVE (NEGATIVE); URINE KETONE NEGATIVE (NEGATIVE); URINE LEUK ESTERASE TRACE (NEGATIVE); URINE NITRITE NEGATIVE (NEGATIVE); URINE PROTEIN 1+ (NEGATIVE); URINE RBC 3 /uL (0-23.9); URINE UROBILINOGEN 0.2 mg/dL (0.2-1.0); URINE WBC 8 /uL (0-25.8)
--- NOTE | 2020-07-15 17:17 | PN ---
Physical Exam: SUBJECTIVE: Patient seen and examined at bedside. Endorses right sided groin pain. Multiple watery bowel movements overnight per RN. OBJECTIVE: Vital Signs Period Temp Pulse Resp BP Sys/Dixon Pulse Ox Last 24 Hr 98.3 F-99.1 F 64-82 18-20 124-151/58-86 95-99 GENERAL: NAD AAOx3 HEAD: Atraumatic/Normocephalic EYES: EOMI Sclera Clear ENT: MMM LUNGS: CTAB No wheezing rales or rhonchi HEART: RRR No MRG S1S2 BACK: No CVA tenderness ABDOMEN: Soft nondistended and nontender Bowel sounds +. No gua rding/rebound/rigidity. Right Groin pain. EXTREMITIES: No CCE SKIN: Warm to touch Laboratory Results - last 24 hr 07/14/20 07/15/20 07/15/20 22:22 06:32 06:50 WBC RBC Hgb Hct MCV MCH MCHC RDW Plt Count MPV Absolute Neuts (auto) Neutrophils % Neutrophils % (Manual) Band Neutrophils % Lymphocytes % Lymphocytes % (Manual) Monocytes % Monocytes % (Manual) Eosinophils % Eosinophils % (Manual) Basophils % Basophils % (Manual) Myelocytes % (Man) Promyelocytes % (Man) Blast Cells % (Manual) Nucleated RBC % Metamyelocytes Hypochromia Platelet Estimate Polychromasia Poikilocytosis Anisocytosis Microcytosis Macrocytosis Sodium 136 Potassium 4.6 Chloride 104 Carbon Dioxide 27 Anion Gap 6 L BUN 16.9 Creatinine 1.5 H Est GFR (CKD-EPI)AfAm 55.04 Est GFR (CKD-EPI)NonAf 47.49 POC Glucometer 155 151 Random Glucose 164 H Calcium 8.2 L Phosphorus 3.1 Magnesium 2.3 Stool Occult Blood 07/15/20 07/15/20 07/15/20 06:50 12:08 12:50 WBC 20.1 H RBC 4.01 Hgb 10.9 L Hct 33.2 L MCV 82.9 MCH 27.3 MCHC 32.9 RDW 15.7 Plt Count 482 H MPV 6.8 L Absolute Neuts (auto) 15.8 H Neutrophils % 78.5 Neutrophils % (Manual) 78.6 Band Neutrophils % 0.0 Lymphocytes % 10.0 Lymphocytes % (Manual) 10.2 Monocytes % 9.4 Monocytes % (Manual) 8 Eosinophils % 1.6 Eosinophils % (Manual) 0.0 D Basophils % 0.5 Basophils % (Manual) 0.0 Myelocytes % (Man) 1 D Promyelocytes % (Man) 0 Blast Cells % (Manual) 0 Nucleated RBC % 0 Metamyelocytes 1 D Hypochromia 0 Platelet Estimate Normal Polychromasia 0 Poikilocytosis 0 Anisocytosis 2+ Microcytosis 2+ Macrocytosis 0 Sodium Potassium Chloride Carbon Dioxide Anion Gap BUN Creatinine Est GFR (CKD-EPI)AfAm Est GFR (CKD-EPI)NonAf POC Glucometer 148 Random Glucose Calcium Phosphorus Magnesium Stool Occult Blood Positive Active Medications Generic Name Dose Route Start Last Admin Trade Name Freq PRN Reason Stop Dose Admin Acetaminophen 650 mg 07/08/20 18:26 07/12/20 21:21 Tylenol - PO 650 mg Q4H PRN Administration PAIN LEVEL 1-5 Amlodipine Besylate 10 mg 07/09/20 10:00 07/15/20 10:33 Norvasc - PO 10 mg DAILY LILIYA Administration Banana Based Medical Food 1 packet 07/13/20 22:00 07/15/20 15:42 Banatrol Plus Powder Packet PO 1 packet TID LILIYA Administration Bisacodyl 10 mg 07/08/20 14:52 Dulcolax Suppository - [place] DAILY PRN CONSTIPATION Docusate Sodium 100 mg 07/08/20 14:00 07/15/20 15:18 Colace - PO Not Given TID LILIYA Emollient Ointment 1 applic 07/12/20 12:00 07/15/20 10:35 Aquaphor - TP 1 applic DAILY LILIYA Administration Piperacillin Sod/Tazobactam 100 mls @ 200 mls/hr 07/07/20 18:00 07/15/20 10:34 Sod 4.5 gm/ Dextrose IVPB 200 mls/hr Q8H-IV LILIYA Administration Protocol Sodium Chloride 1,000 mls @ 75 mls/hr 07/14/20 13:45 07/15/20 03:50 Normal Saline - IV 75 mls/hr ASDIR LILIYA Administration Insulin Aspart 1 vial 07/06/20 22:00 07/15/20 12:31 Novolog Vial Sliding Scale - SQ Not Given ACHS LILIYA Protocol Losartan Potassium 100 mg 07/11/20 08:28 07/14/20 09:04 Cozaar - PO 100 mg DAILY LILIYA Administration Metoprolol Succinate 50 mg 07/09/20 10:00 07/15/20 10:33 Toprol Xl - PO 50 mg DAILY LILIYA Administration Pantoprazole Sodium 40 mg 07/13/20 14:00 07/15/20 10:33 Protonix - PO 40 mg DAILY LILIYA Administration ASSESSMENT/PLAN: 65-year-old male who presented 1 day after ureteroscopic laser lithotripsy and stent insertion for renal calculus with severe sepsis and WALI. #Severe sepsis with bacteremia status post lithotripsy and ureteral stent insertion Blood cultures positive for gram-negative rods in 1 out of 2 bottles. WBC trending downwards. Afebrile overnight. Continue to trend WBC. Repeat BCx negative On Zosyn day 9. Will require a total of 14 days of IV ABx per ID. WBC today down today to 20. Continue to trend -Repeat CTAP today reveals moderate right hydro with no apparent obstruction. ID and urology on board. Repeat C-Diff negative #WALI: -Resolved. Cr 1.5 today. #Incidentally found lung nodule 3-month follow-up after discharge #Diabetes mellitus Sliding scale Hold home metformin #FEN No fluids Monitor Electrolytes Diabetic/Sodium diet #DVT ppx: HEPSQTID #Dispo: Med-Surg Visit type - Emergency Visit Emergency Visit: Yes ED Registration Date: 07/06/20 Care time: The patient presented to the Emergency Department on the above date and was hospitalized for further evaluation of their emergent condition. - New Patient This patient is new to me today: No - Critical Care Critical Care patient: No - Discharge Referral Referred to [facility] Med P.C.: No - Medication Review Med list reviewed for High Risk Meds patients 65 and older: Yes ATTENDING PHYSICIAN STATEMENT I saw and evaluated the patient. I reviewed the resident's note and discussed the case with the resident. I agree with the resident's findings and plan as documented. SUBJECTIVE: OBJECTIVE: ASSESSMENT AND PLAN:
[2020-07-15] MEDS: ACETAMINOPHEN 325 MG TABLET (FP) PO PRN (21:12)
[2020-07-15] MEDS ORDERED: INSULIN (NOVOLOG) ASPART 100 UNITS/ML 10ML VIAL ONE (21:15)
[2020-07-16] MEDS ORDERED: PIPERACILLIN/TAZOBACTAM 4.5 GM VIAL IVPB ONE ×3 (02:07→17:16)
[2020-07-16] MEDS ORDERED: DEXTROSE 5%-WATER 100 ML IVPB ONE ×3 (02:07→17:16)
[2020-07-16] MEDS: PIPERACILLIN/TAZOB 4.5 GM 4.5 GM in DEXTROSE 5%-WATER 100 ML IVPB SCH ×3 (02:15→17:19)
[2020-07-16] MEDS ORDERED: PT OWN MED DRAWER 7, Y5N ONE ×4 (05:57→21:30)
[2020-07-16] MEDS: BANATROL PLUS POWDER PACKET PO SCH ×3 (06:00→22:01)
[2020-07-16] MEDS: DOCUSATE SODIUM 100 MG CAPSULE (FP) PO SCH ×4 (06:01→21:53)
[2020-07-16] MEDS: INSULIN SLIDING SCALE (NOVOLOG) 1 VIAL SQ SCH ×4 (06:06→22:00)
[2020-07-16] MEDS: SODIUM CHLORIDE 1,000 ML IV SCH (08:00)
[2020-07-16 08:16] LABS: HEMATOCRIT 32.3 % (35.4-49); HEMOGLOBIN 10.6 GM/dL (11.7-16.9); MCH 27.2 pg (25.7-33.7); MCHC 32.8 g/dl (32.0-35.9); PLATELET COUNT 550 K/MM3 (134-434); RBC 3.89 M/mm3 (4.00-5.60); RDW 15.8 % (11.9-15.9); WHITE BLOOD COUNT 17.3 K/mm3 (4.0-10.0)
[2020-07-16 08:49] LABS: ALBUMIN 2.4 g/dl (3.4-5.0); BILIRUBIN,TOTAL 0.5 mg/dL (0.2-1); BLOOD UREA NITROGEN 11.4 mg/dL (7-18); CALCIUM 7.9 mg/dL (8.5-10.1); CREATININE 1.4 mg/dL (0.55-1.3); MAGNESIUM 2.3 mg/dL (1.8-2.4); PHOSPHOROUS 2.6 mg/dL (2.5-4.9); TOT PROT 6.6 g/dl (6.4-8.2)
--- NOTE | 2020-07-16 08:57 | PN ---
Progress Note (short form) - Note Progress Note: no fevers no abdominal pain today NA reports formed stool this am ct scan with duodenitis- started on PPI Vital Signs Period Temp Pulse Resp BP Sys/Dixon Pulse Ox Last 24 Hr 98.6 F-99 F 74-82 18-20 134-154/62-73 97-98 cor-rrr lungs clear abd soft,nt ext no edema CBC, BMP 07/17/20 06:45 07/17/20 06:45 Microbiology 07/16/20 13:15 Urine - Urine Clean Catch Urine Culture - Final NO GROWTH OBTAINED 07/11/20 13:40 Blood - Peripheral Venous Blood Culture - Final NO GROWTH AFTER 5 DAYS INCUBATION 07/11/20 13:30 Blood - Peripheral Venous Blood Culture - Final NO GROWTH AFTER 5 DAYS INCUBATION 07/15/20 12:50 Stool Clostridioides difficile Antigen - Final 07/15/20 12:50 Stool Clostridioides difficile Toxin Assay - Final 07/12/20 02:25 Stool Clostridioides difficile Antigen - Final 07/12/20 02:25 Stool Clostridioides difficile Toxin Assay - Final 07/06/20 17:15 Urine - Urine Clean Catch Urine Culture - Final Pseudomonas Aeruginosa 07/06/20 13:18 Blood - Peripheral Venous Blood Culture - Final Pseudomonas Aeruginosa 07/06/20 13:18 Blood - Peripheral Venous Blood Culture - Final Pseudomonas Aeruginosa sono- mild right hydro ct scan reviewed with radiology yesterday and d/w hospitalist a/p leukocytosis-starting to trend down- repeat stool cdiff is negative diarrhea appears improved, ?antibioitic associated- on flagyl and bacid pseudomonas bacteremia/UTI-zosyn day #11 -stent is out repeat blood cultures negative repeat urine culture is negative will d/c zosyn and observe s/p cva with aphasia and right hemiparesis d/w hospitalist Problem List - Problems (1) Sepsis Code(s): A41.9 - SEPSIS, UNSPECIFIED ORGANISM (2) UTI (urinary tract infection) Code(s): N39.0 - URINARY TRACT INFECTION, SITE NOT SPECIFIED (3) WALI (acute kidney injury) Code(s): N17.9 - ACUTE KIDNEY FAILURE, UNSPECIFIED (4) Abdominal distension Code(s): R14.0 - ABDOMINAL DISTENSION (GASEOUS)
[2020-07-16] MEDS: metroNIDAZOLE 250 MG TABLET PO SCH ×3 (09:29→21:53)
[2020-07-16] MEDS: amLODIPine BESYLATE 10 MG TABLET (FP) PO SCH (09:29)
[2020-07-16] MEDS: PANTOPRAZOLE 40 MG TABLET PO SCH (09:29)
[2020-07-16] MEDS: MINERAL OIL/PET HY-PHL TOPICAL OINTMENT 454 GM JAR TP SCH (09:30)
[2020-07-16] MEDS: LACTOBACILLUS ACIDOPHILUS 1 TABLET PO SCH (13:10)
[2020-07-16] MEDS: ACETAMINOPHEN 325 MG TABLET (FP) PO PRN (17:19)
[2020-07-17] MEDS ORDERED: DEXTROSE 5%-WATER 100 ML IVPB ONE ×2 (01:53→09:01)
[2020-07-17] MEDS ORDERED: PIPERACILLIN/TAZOBACTAM 4.5 GM VIAL IVPB ONE ×2 (01:53→09:01)
[2020-07-17] MEDS: PIPERACILLIN/TAZOB 4.5 GM 4.5 GM in DEXTROSE 5%-WATER 100 ML IVPB SCH ×2 (02:28→09:28)
[2020-07-17] MEDS: metroNIDAZOLE 250 MG TABLET PO SCH ×3 (05:58→21:54)
[2020-07-17] MEDS: DOCUSATE SODIUM 100 MG CAPSULE (FP) PO SCH ×3 (05:58→21:54)
[2020-07-17] MEDS: BANATROL PLUS POWDER PACKET PO SCH ×3 (05:58→21:54)
[2020-07-17] MEDS: INSULIN SLIDING SCALE (NOVOLOG) 1 VIAL SQ SCH ×4 (06:03→21:55)
[2020-07-17 07:43] LABS: BASO % 0.5 % (0-2.0); EOS % 0.4 % (0-4.5); HEMATOCRIT 35.4 % (35.4-49); HEMOGLOBIN 11.4 GM/dL (11.7-16.9); LYMPH % 8.6 % (8-40); MCH 26.8 pg (25.7-33.7); MCHC 32.3 g/dl (32.0-35.9); MEAN CELL VOLUME 82.9 fl (80-96); MEAN PLT VOLUME 6.8 fl (7.5-11.1); MONO % 6.2 % (3.8-10.2); NEUT % 84.3 % (42.8-82.8); PLATELET COUNT 555 K/MM3 (134-434); RBC 4.27 M/mm3 (4.00-5.60); RDW 15.8 % (11.9-15.9); WHITE BLOOD COUNT 17.9 K/mm3 (4.0-10.0)
[2020-07-17 08:00] LABS: ALBUMIN 2.6 g/dl (3.4-5.0); BILIRUBIN,TOTAL 0.3 mg/dL (0.2-1); BLOOD UREA NITROGEN 9.5 mg/dL (7-18); CALCIUM 8.3 mg/dL (8.5-10.1); CREATININE 1.3 mg/dL (0.55-1.3); POTASSIUM 4.7 mmol/L (3.5-5.1); TOT PROT 7.4 g/dl (6.4-8.2)
[2020-07-17] MEDS: amLODIPine BESYLATE 10 MG TABLET (FP) PO SCH (09:20)
[2020-07-17] MEDS: LOSARTAN POTASSIUM 50 MG TABLET PO SCH (09:20)
[2020-07-17] MEDS: PANTOPRAZOLE 40 MG TABLET PO SCH (09:20)
[2020-07-17] MEDS: LACTOBACILLUS ACIDOPHILUS 1 TABLET PO SCH (09:21)
[2020-07-17] MEDS: MINERAL OIL/PET HY-PHL TOPICAL OINTMENT 454 GM JAR TP SCH (09:21)
[2020-07-17] MEDS ORDERED: PT OWN MED DRAWER 7, Y5N ONE ×3 (09:53→21:50)
[2020-07-17] MEDS: SODIUM CHLORIDE 1,000 ML IV SCH (13:52)
--- NOTE | 2020-07-17 15:16 | PN ---
Progress Note (short form) - Note Progress Note: Seen and examined at bedside. Patient continues to have no complaints. White count downtrending. Afebrile. Discussed case with ID: Antibiotics to be discontinued OBJECTIVE Last Vital Signs Temp Pulse Resp BP Pulse Ox 98.2 F 73 18 147/66 101 H 07/17/20 14:00 07/17/20 14:00 07/17/20 14:00 07/17/20 14:00 07/17/20 14:00 PE: GEN: NAD HEENT: NC/AT PEARLL RESP: CTAB CARDS: RRR, -MRG ABD: soft, nt/nd +BS EXT: No swelling/Edema Neuro: Non-focal, A&OX3 Labs/Imaging: reviewed ASSESSMENT/PLAN 65-year-old male who presented 1 day after ureteroscopic laser lithotripsy and stent insertion for renal calculus with severe sepsis and WALI. #Severe sepsis with bacteremia status post lithotripsy and ureteral stent insertion: cx+ for pseudomonas Blood and urine cultures positive for pseudomonas -s/p 11 days zosyn Fluids ID and urology on board: Appreciate recommendations #leukocytosis -out of proportion to symptoms -cdiff negx2. Now with formed stool -ID on board -dc abx and observe #WALI: Postobstructive vs prerenal: resolved #duodenitis/gastritis? -cont pantoprazole. If pt becomes symptomatic or WBC continues to rise will have to consider cscope #Incidentally found lung nodule 3-month follow-up after discharge #Diabetes mellitus Sliding scale Hold home metformin Visit type - Emergency Visit Emergency Visit: Yes ED Registration Date: 07/06/20 Care time: The patient presented to the Emergency Department on the above date and was hospitalized for further evaluation of their emergent condition. - New Patient This patient is new to me today: No - Critical Care Critical Care patient: No - Medication Review Med list reviewed for High Risk Meds patients 65 and older: Yes
[2020-07-17] MEDS: ACETAMINOPHEN 325 MG TABLET (FP) PO PRN (21:54)
[2020-07-18] MEDS ORDERED: PT OWN MED DRAWER 7, Y5N ONE ×8 (05:42→21:27)
[2020-07-18] MEDS: BANATROL PLUS POWDER PACKET PO SCH ×3 (05:47→21:23)
[2020-07-18] MEDS: metroNIDAZOLE 250 MG TABLET PO SCH ×3 (05:47→21:23)
[2020-07-18] MEDS: DOCUSATE SODIUM 100 MG CAPSULE (FP) PO SCH ×4 (05:47→21:25)
[2020-07-18] MEDS: INSULIN SLIDING SCALE (NOVOLOG) 1 VIAL SQ SCH ×4 (06:35→21:24)
[2020-07-18] MEDS: MINERAL OIL/PET HY-PHL TOPICAL OINTMENT 454 GM JAR TP SCH (10:12)
[2020-07-18] MEDS: PANTOPRAZOLE 40 MG TABLET PO SCH (10:13)
[2020-07-18] MEDS: amLODIPine BESYLATE 10 MG TABLET (FP) PO SCH (10:13)
[2020-07-18] MEDS: LACTOBACILLUS ACIDOPHILUS 1 TABLET PO SCH (10:13)
--- NOTE | 2020-07-18 10:13 | PN ---
Progress Note (short form) - Note Progress Note: no fevers no abdominal pain formed stools today Vital Signs Period Temp Pulse Resp BP Sys/Dixon Pulse Ox Last 24 Hr 98.1 F-98.8 F 62-73 18-20 137-147/64-75 98-101 cor-rrr lungs decreased bs at bases abd soft,nt ext no edema LABS TODAY ARE PENDING sono- mild right hydro ct scan reviewed with radiology yesterday and d/w hospitalist a/p leukocytosis-starting to trend down- repeat stool cdiff is negative diarrhea appears improved, ?antibioitic associated- on flagyl and bacid pseudomonas bacteremia/UTI-completed 10 days zosyn, d/jair yesterday repeat blood cultures negative repeat urine culture is negative s/p cva with aphasia and right hemiparesis d/w hospitalist followup labs today OOB to chair Problem List - Problems (1) Sepsis Code(s): A41.9 - SEPSIS, UNSPECIFIED ORGANISM (2) UTI (urinary tract infection) Code(s): N39.0 - URINARY TRACT INFECTION, SITE NOT SPECIFIED (3) WALI (acute kidney injury) Code(s): N17.9 - ACUTE KIDNEY FAILURE, UNSPECIFIED (4) Abdominal distension Code(s): R14.0 - ABDOMINAL DISTENSION (GASEOUS)
[2020-07-18] MEDS: LOSARTAN POTASSIUM 50 MG TABLET PO SCH (10:14)
[2020-07-18 11:13] LABS: BASO % 0.8 % (0-2.0); EOS % 0.9 % (0-4.5); HEMATOCRIT 35.3 % (35.4-49); HEMOGLOBIN 11.3 GM/dL (11.7-16.9); LYMPH % 11.2 % (8-40); MCH 26.6 pg (25.7-33.7); MCHC 32.1 g/dl (32.0-35.9); MEAN CELL VOLUME 82.8 fl (80-96); MEAN PLT VOLUME 7.1 fl (7.5-11.1); MONO % 6.5 % (3.8-10.2); NEUT % 80.6 % (42.8-82.8); PLATELET COUNT 650 K/MM3 (134-434); RBC 4.27 M/mm3 (4.00-5.60); RDW 15.9 % (11.9-15.9); WHITE BLOOD COUNT 12.7 K/mm3 (4.0-10.0)
[2020-07-18 11:31] LABS: BLOOD UREA NITROGEN 10.2 mg/dL (7-18); CALCIUM 8.5 mg/dL (8.5-10.1); CREATININE 1.1 mg/dL (0.55-1.3); POTASSIUM 4.6 mmol/L (3.5-5.1)
--- NOTE | 2020-07-18 12:34 | PN ---
Teaching Attending Note Name of Resident: Leticia Holly ATTENDING PHYSICIAN STATEMENT I saw and evaluated the patient. I reviewed the resident's note and discussed the case with the resident. I agree with the resident's findings and plan as documented. Seen and examined at bedside. White count down trended significantly while off zosyn Platelets continue to increase. Will observe for 24 more hours with plan to discharge tomorrow if CBC continues to improve and patient remains afebrile OBJECTIVE Last Vital Signs Temp Pulse Resp BP Pulse Ox 98.1 F 71 19 122/74 97 07/18/20 11:00 07/18/20 11:00 07/18/20 11:00 07/18/20 11:00 07/18/20 11:00 PE: GEN: NAD HEENT: NC/AT PEARLL RESP: CTAB CARDS: RRR, -MRG ABD: soft, nt/nd +BS EXT: No swelling/Edema Neuro: Non-focal, A&OX3 Labs/Imaging: reviewed ASSESSMENT/PLAN 65-year-old male who presented 1 day after ureteroscopic laser lithotripsy and stent insertion for renal calculus with severe sepsis and WALI. #Severe sepsis with bacteremia status post lithotripsy and ureteral stent insertion: cx+ for pseudomonas Blood and urine cultures positive for pseudomonas -s/p 11 days zosyn Fluids ID and urology on board: Appreciate recommendations #leukocytosis/thrombocytosis: improving -out of proportion to symptoms -cdiff negx2. Now with formed stool -ID on board -dc abx and observe #WALI: Postobstructive vs prerenal: resolved #duodenitis/gastritis? -cont pantoprazole. If pt becomes symptomatic or WBC continues to rise will have to consider cscope #Incidentally found lung nodule 3-month follow-up after discharge #Diabetes mellitus Sliding scale Hold home metformin
--- NOTE | 2020-07-18 15:32 | PN ---
Physical Exam: SUBJECTIVE: Patient seen this morning, with no complaints. OBJECTIVE: Vital Signs Period Temp Pulse Resp BP Sys/Dixon Pulse Ox Last 24 Hr 98.1 F-98.8 F 62-71 19-20 122-145/64-75 97-100 GENERAL: The patient is awake, alert, and fully oriented, in no acute distress. obese HEAD: Normal with no signs of trauma. EYES: PERRL, extraocular movements intact ENT: moist mucous membranes. LUNGS: Breath sounds equal, clear to auscultation bilaterally, no wheezes, no crackles, no accessory muscle use. HEART: Regular rate and rhythm, S1, S2 without murmur, rub or gallop. ABDOMEN: Soft, nontender, nondistended, normoactive bowel sounds, no guarding, no rebound, no hepatosplenomegaly, no masses. EXTREMITIES: 2+ pulses, warm, well-perfused, no edema. SKIN: Warm, dry, normal turgor, no rashes or lesions noted CBC, BMP 07/18/20 10:08 07/18/20 10:08 Active Medications Generic Name Dose Route Start Last Admin Trade Name Freq PRN Reason Stop Dose Admin Acetaminophen 650 mg 07/08/20 18:26 07/17/20 21:54 Tylenol - PO 650 mg Q4H PRN Administration PAIN LEVEL 1-5 Amlodipine Besylate 10 mg 07/09/20 10:00 07/18/20 10:13 Norvasc - PO 10 mg DAILY LILIYA Administration Banana Based Medical Food 2 packet 07/18/20 14:00 07/18/20 13:45 Banatrol Plus Powder Packet PO 2 packet TID LILIYA Administration Bisacodyl 10 mg 07/08/20 14:52 Dulcolax Suppository - [place] DAILY PRN CONSTIPATION Docusate Sodium 100 mg 07/08/20 14:00 07/18/20 15:19 Colace - PO Not Given TID [facility] Emollient Ointment 1 applic 07/12/20 12:00 07/18/20 10:12 Aquaphor - TP 1 applic DAILY LILIYA Administration Insulin Aspart 1 vial 07/06/20 22:00 07/18/20 12:04 Novolog Vial Sliding Scale - SQ Not Given ACHS [facility] Protocol Lactobacillus Acidophilus 1 tab 07/16/20 12:15 07/18/20 10:13 Bacid - PO 1 tab DAILY LILIYA Administration Losartan Potassium 100 mg 07/11/20 08:28 07/18/20 10:14 Cozaar - PO 100 mg DAILY LILIYA Administration Metoprolol Succinate 50 mg 07/09/20 10:00 07/18/20 10:13 Toprol Xl - PO 50 mg DAILY LILIYA Administration Metronidazole 500 mg 07/16/20 09:00 07/18/20 13:44 Flagyl - PO 500 mg TID LILIYA Administration Pantoprazole Sodium 40 mg 07/13/20 14:00 07/18/20 10:13 Protonix - PO 40 mg DAILY LILIYA Administration ASSESSMENT/PLAN: 65-year-old male who presented 1 day after ureteroscopic laser lithotripsy and stent insertion for renal calculus with severe sepsis and WALI. #Sepsis 2/2 to UTI s/p stent placement - leukocytois trending down - monitor off ABX, except Flagy - continue Flagyl while still having soft stools, continue banana flakes - vitals stable #WALI - resolved #Incidentally found lung nodule 3-month follow-up after discharge DVT ppx: heparin TID Dispo: monitor labs one more day and can DC if trending down Visit type - Emergency Visit Emergency Visit: No - New Patient This patient is new to me today: Yes Date on this admission: 07/18/20 - Critical Care Critical Care patient: No - Medication Review Med list reviewed for High Risk Meds patients 65 and older: Yes ATTENDING PHYSICIAN STATEMENT I saw and evaluated the patient. I reviewed the resident's note and discussed the case with the resident. I agree with the resident's findings and plan as documented. SUBJECTIVE: OBJECTIVE: ASSESSMENT AND PLAN:
[2020-07-18] MEDS ORDERED: INSULIN (NOVOLOG) ASPART 100 UNITS/ML 10ML VIAL ONE (21:17)
[2020-07-19] MEDS ORDERED: PT OWN MED DRAWER 7, Y5N ONE ×2 (05:24→14:02)
[2020-07-19] MEDS: DOCUSATE SODIUM 100 MG CAPSULE (FP) PO SCH ×3 (06:15→21:26)
[2020-07-19] MEDS: BANATROL PLUS POWDER PACKET PO SCH ×3 (06:16→21:30)
[2020-07-19] MEDS: metroNIDAZOLE 250 MG TABLET PO SCH ×3 (06:16→21:30)
[2020-07-19] MEDS: INSULIN SLIDING SCALE (NOVOLOG) 1 VIAL SQ SCH ×4 (06:16→21:29)
[2020-07-19 08:47] LABS: HEMATOCRIT 34.8 % (35.4-49); HEMOGLOBIN 11.3 GM/dL (11.7-16.9); MCH 26.8 pg (25.7-33.7); MCHC 32.5 g/dl (32.0-35.9); MEAN CELL VOLUME 82.5 fl (80-96); MEAN PLT VOLUME 7.2 fl (7.5-11.1); PLATELET COUNT 707 K/MM3 (134-434); RBC 4.22 M/mm3 (4.00-5.60); RDW 15.6 % (11.9-15.9); WHITE BLOOD COUNT 13.1 K/mm3 (4.0-10.0)
[2020-07-19 08:55] LABS: ALBUMIN 2.6 g/dl (3.4-5.0); BILIRUBIN,TOTAL 0.3 mg/dL (0.2-1); BLOOD UREA NITROGEN 15.3 mg/dL (7-18); CREATININE 1.2 mg/dL (0.55-1.3); POTASSIUM 5.2 mmol/L (3.5-5.1); TOT PROT 7.2 g/dl (6.4-8.2)
[2020-07-19] MEDS: MINERAL OIL/PET HY-PHL TOPICAL OINTMENT 454 GM JAR TP SCH (09:03)
[2020-07-19] MEDS: LACTOBACILLUS ACIDOPHILUS 1 TABLET PO SCH (09:04)
[2020-07-19] MEDS: PANTOPRAZOLE 40 MG TABLET PO SCH (09:04)
[2020-07-19] MEDS: amLODIPine BESYLATE 10 MG TABLET (FP) PO SCH (09:04)
[2020-07-19] MEDS: LOSARTAN POTASSIUM 50 MG TABLET PO SCH (09:05)
[2020-07-19] MEDS ORDERED: SODIUM CHLORIDE 500 ML IV STA (10:16)
--- NOTE | 2020-07-19 14:54 | PN ---
Teaching Attending Note Name of Resident: Wei Lindsey ATTENDING PHYSICIAN STATEMENT I saw and evaluated the patient. I reviewed the resident's note and discussed the case with the resident. I agree with the resident's findings and plan as documented. Seen and examined at bedside. Patient has no complaints. Afebrile. White counts increased to 13.1 and platelets increased to over 700. Will get CT abdomen pelvis with contrast. If no sign of infection patient is medically cleared for discharge and should have a follow-up CBC in 1 to 2 weeks to check for resolution of leukocytosis/thrombocytosis. If if sign of infection if abnormality found patient will need to remain inpatient for further treatment OBJECTIVE Last Vital Signs Temp Pulse Resp BP Pulse Ox 98.1 F 71 19 122/74 97 07/18/20 11:00 07/18/20 11:00 07/18/20 11:00 07/18/20 11:00 07/18/20 11:00 PE: GEN: NAD HEENT: NC/AT PEARLL RESP: CTAB CARDS: RRR, -MRG ABD: soft, nt/nd +BS EXT: No swelling/Edema Neuro: Non-focal, A&OX3 Labs/Imaging: reviewed ASSESSMENT/PLAN 65-year-old male who presented 1 day after ureteroscopic laser lithotripsy and stent insertion for renal calculus with severe sepsis and WALI. #Severe sepsis with bacteremia status post lithotripsy and ureteral stent insertion: cx+ for pseudomonas Blood and urine cultures positive for pseudomonas -s/p 11 days zosyn Fluids ID and urology on board: Appreciate recommendations #leukocytosis/thrombocytosis: improving -CT/AP to check for abscess or other abnormality -out of proportion to symptoms -cdiff negx2. Now with formed stool -ID on board -dc abx and observe #WALI: Postobstructive vs prerenal: resolved #duodenitis/gastritis? -cont pantoprazole. If pt becomes symptomatic or WBC continues to rise will have to consider cscope #Incidentally found lung nodule 3-month follow-up after discharge #Diabetes mellitus Sliding scale Hold home metformin
--- NOTE | 2020-07-19 15:57 | PN ---
Progress Note (short form) - Note Progress Note: feels well no fevers no abdominal pain formed stools today Vital Signs Period Temp Pulse Resp BP Sys/Dixon Pulse Ox Last 24 Hr 98.1 F-98.7 F 71-82 18-20 132-139/65-73 95-98 cor-rrr lungs clear abd soft,nt ext no edema CBC, BMP 07/19/20 06:40 07/19/20 06:40 Microbiology 07/16/20 13:15 Urine - Urine Clean Catch Urine Culture - Final NO GROWTH OBTAINED 07/11/20 13:40 Blood - Peripheral Venous Blood Culture - Final NO GROWTH AFTER 5 DAYS INCUBATION 07/11/20 13:30 Blood - Peripheral Venous Blood Culture - Final NO GROWTH AFTER 5 DAYS INCUBATION 07/15/20 12:50 Stool Clostridioides difficile Antigen - Final 07/15/20 12:50 Stool Clostridioides difficile Toxin Assay - Final 07/12/20 02:25 Stool Clostridioides difficile Antigen - Final 07/12/20 02:25 Stool Clostridioides difficile Toxin Assay - Final 07/06/20 17:15 Urine - Urine Clean Catch Urine Culture - Final Pseudomonas Aeruginosa 07/06/20 13:18 Blood - Peripheral Venous Blood Culture - Final Pseudomonas Aeruginosa 07/06/20 13:18 Blood - Peripheral Venous Blood Culture - Final Pseudomonas Aeruginosa sono- mild right hydro ct scan with iv contrast done today- reveiwed with radiology-duodenitis improved, no abscesses, right kidney slightly enlarged most likely from recent hydro and stent a/p leukocytosis and thrombocytosis- repeat cbc in am, ct scan no abscess pseudomonas bacteremia/UTI-completed 10 days zosyn, d/jair yesterday repeat blood cultures negative repeat urine culture is negative s/p cva with aphasia and right hemiparesis d/w hospitalist OOB to chair Problem List - Problems (1) Sepsis Code(s): A41.9 - SEPSIS, UNSPECIFIED ORGANISM (2) UTI (urinary tract infection) Code(s): N39.0 - URINARY TRACT INFECTION, SITE NOT SPECIFIED (3) WALI (acute kidney injury) Code(s): N17.9 - ACUTE KIDNEY FAILURE, UNSPECIFIED (4) Abdominal distension Code(s): R14.0 - ABDOMINAL DISTENSION (GASEOUS)
--- NOTE | 2020-07-19 18:06 | PN ---
Physical Exam: SUBJECTIVE: Patient seen and examined at bedside. Denies any complaints. No acute events overnight. OBJECTIVE: Vital Signs Period Temp Pulse Resp BP Sys/Dioxn Pulse Ox Last 24 Hr 98.1 F-98.7 F 71-82 18-20 132-139/65-73 95-98 GENERAL: NAD AAOx3 HEAD: Atraumatic/Normocephalic EYES: EOMI Sclera Clear ENT: MMM LUNGS: CTAB HEART: RRR No MRG S1S2 ABDOMEN: Soft nondistended and nontender Bowel sounds +. No guarding/rebound/rigidity. EXTREMITIES: No CCE SKIN: Warm to touch Laboratory Results - last 24 hr 07/18/20 07/19/20 07/19/20 21:22 06:14 06:40 WBC 13.1 H RBC 4.22 Hgb 11.3 L Hct 34.8 L MCV 82.5 MCH 26.8 MCHC 32.5 RDW 15.6 Plt Count 707 H MPV 7.2 L Sodium Potassium Chloride Carbon Dioxide Anion Gap BUN Creatinine Est GFR (CKD-EPI)AfAm Est GFR (CKD-EPI)NonAf POC Glucometer 136 133 Random Glucose Calcium Total Bilirubin AST ALT Alkaline Phosphatase Total Protein Albumin 07/19/20 07/19/20 07/19/20 06:40 11:12 17:06 WBC RBC Hgb Hct MCV MCH MCHC RDW Plt Count MPV Sodium 136 Potassium 5.2 H Chloride 104 Carbon Dioxide 26 Anion Gap 6 L BUN 15.3 Creatinine 1.2 Est GFR (CKD-EPI)AfAm 72.09 Est GFR (CKD-EPI)NonAf 62.20 POC Glucometer 115 133 Random Glucose 146 H Calcium 9.0 Total Bilirubin 0.3 AST 10 L ALT 26 Alkaline Phosphatase 93 Total Protein 7.2 Albumin 2.6 L Active Medications Generic Name Dose Route Start Last Admin Trade Name Freq PRN Reason Stop Dose Admin Acetaminophen 650 mg 07/08/20 18:26 07/17/20 21:54 Tylenol - PO 650 mg Q4H PRN Administration PAIN LEVEL 1-5 Amlodipine Besylate 10 mg 07/09/20 10:00 07/19/20 09:04 Norvasc - PO 10 mg DAILY LILIYA Administration Banana Based Medical Food 1 packet 07/19/20 14:00 07/19/20 14:06 Banatrol Plus Powder Packet PO 1 packet TID LILIYA Administration Bisacodyl 10 mg 07/08/20 14:52 Dulcolax Suppository - [place] DAILY PRN CONSTIPATION Docusate Sodium 100 mg 07/08/20 14:00 07/19/20 14:07 Colace - PO Not Given TID LILIYA Emollient Ointment 1 applic 07/12/20 12:00 07/19/20 09:03 Aquaphor - TP 1 applic DAILY LILIYA Administration Insulin Aspart 1 vial 07/06/20 22:00 07/19/20 17:58 Novolog Vial Sliding Scale - SQ Not Given ACHS [facility] Protocol Lactobacillus Acidophilus 1 tab 07/16/20 12:15 07/19/20 09:04 Bacid - PO 1 tab DAILY LILIYA Administration Losartan Potassium 100 mg 07/11/20 08:28 07/19/20 09:05 Cozaar - PO 100 mg DAILY LILIYA Administration Metoprolol Succinate 50 mg 07/09/20 10:00 07/19/20 09:03 Toprol Xl - PO 50 mg DAILY LILIYA Administration Metronidazole 500 mg 07/16/20 09:00 07/19/20 14:06 Flagyl - PO 500 mg TID LILIYA Administration Pantoprazole Sodium 40 mg 07/13/20 14:00 07/19/20 09:04 Protonix - PO 40 mg DAILY LILIYA Administration ASSESSMENT/PLAN: 65-year-old male who presented 1 day after ureteroscopic laser lithotripsy and stent insertion for renal calculus with severe sepsis and WALI. #Severe sepsis with bacteremia status post lithotripsy and ureteral stent insertion Blood cultures positive for gram-negative rods in 1 out of 2 bottles. WBC trending downwards. Afebrile overnight. Continue to trend WBC. Repeat BCx negative Completed ABx course. -Repeat CTAP today reveals moderate right hydro with no apparent obstruction. Repeat CTAP w/ Contrast 07/19/2020--> Possible acute pyelo. No abscess appreciated. Repeat cbc in am ID and urology on board. Repeat C-Diff negative #WALI: -Resolved. Cr 1.2 today. #Incidentally found lung nodule 3-month follow-up after discharge #Diabetes mellitus Sliding scale Hold home metformin #FEN No fluids Monitor Electrolytes Diabetic/Sodium diet #DVT ppx: HEPSQTID #Dispo: Likely D/C in am Visit type - Emergency Visit Emergency Visit: Yes ED Registration Date: 07/06/20 Care time: The patient presented to the Emergency Department on the above date and was hospitalized for further evaluation of their emergent condition. - New Patient This patient is new to me today: No - Critical Care Critical Care patient: No - Discharge Referral Referred to [facility] Med P.C.: No - Medication Review Med list reviewed for High Risk Meds patients 65 and older: Yes ATTENDING PHYSICIAN STATEMENT I saw and evaluated the patient. I reviewed the resident's note and discussed the case with the resident. I agree with the resident's findings and plan as documented. SUBJECTIVE: OBJECTIVE: ASSESSMENT AND PLAN:
[2020-07-20] MEDS: metroNIDAZOLE 250 MG TABLET PO SCH ×2 (06:28→14:44)
[2020-07-20] MEDS: INSULIN SLIDING SCALE (NOVOLOG) 1 VIAL SQ SCH ×3 (06:29→16:25)
[2020-07-20] MEDS: DOCUSATE SODIUM 100 MG CAPSULE (FP) PO SCH ×2 (06:29→14:44)
[2020-07-20] MEDS: BANATROL PLUS POWDER PACKET PO SCH (06:29)
[2020-07-20 07:09] VITALS: TEMP 98.8
[2020-07-20 08:23] LABS: BLOOD UREA NITROGEN 16.2 mg/dL (7-18); CALCIUM 9.1 mg/dL (8.5-10.1); CREATININE 1.2 mg/dL (0.55-1.3); MAGNESIUM 2.1 mg/dL (1.8-2.4); PHOSPHOROUS 3.2 mg/dL (2.5-4.9); POTASSIUM 5.4 mmol/L (3.5-5.1)
[2020-07-20 08:34] LABS: HEMOGLOBIN 11.5 GM/dL (11.7-16.9); MCH 26.3 pg (25.7-33.7); MCHC 31.9 g/dl (32.0-35.9); MEAN CELL VOLUME 82.7 fl (80-96); MEAN PLT VOLUME 7.1 fl (7.5-11.1); PLATELET COUNT 713 K/MM3 (134-434); RBC 4.36 M/mm3 (4.00-5.60); WHITE BLOOD COUNT 12.6 K/mm3 (4.0-10.0)
[2020-07-20] MEDS ORDERED: INSULIN REGULAR HUMAN 100 UNITS/ML *VIAL IVPUSH ONE (09:59)
[2020-07-20] MEDS ORDERED: DEXTROSE 50%-WATER - 25 GM/50 ML VIAL IVPUSH ONE (10:00)
[2020-07-20] MEDS ORDERED: SODIUM POLYSTYRENE SULFONATE 15 GM/60 ML BOTTLE PO ONE (10:00)
[2020-07-20] MEDS ORDERED: DEXTROSE 50%-WATER 25 GM/50 ML DISP.SYRIN IVPUSH ONE (10:30)
[2020-07-20] MEDS ORDERED: CARVEDILOL 12.5 MG TABLET (FP) PO SCH (10:30)
[2020-07-20] MEDS ORDERED: CHLORTHALIDONE 25 MG TABLET PO SCH (10:30)
[2020-07-20] MEDS ORDERED: DEXTROSE 50%-WATER 25 GM/50 ML DISP.SYRIN ONE (10:54)
[2020-07-20] MEDS: amLODIPine BESYLATE 10 MG TABLET (FP) PO SCH (10:59)
[2020-07-20] MEDS: LACTOBACILLUS ACIDOPHILUS 1 TABLET PO SCH (10:59)
[2020-07-20] MEDS: PANTOPRAZOLE 40 MG TABLET PO SCH (10:59)
[2020-07-20] MEDS: MINERAL OIL/PET HY-PHL TOPICAL OINTMENT 454 GM JAR TP SCH (10:59)
--- NOTE | 2020-07-20 14:10 | DS ---
Physical Exam: SUBJECTIVE: Patient seen and examined at bedside. Resting comfortably, denies any subjective fevers, shortness of breath, or abdominal pain. OBJECTIVE: Vital Signs Period Temp Pulse Resp BP Sys/Dixon Pulse Ox Last 24 Hr 98.5 F-98.8 F 77-78 20- 135-137/75-75 97-98 PHYSICAL EXAM GENERAL: NAD AAOx3 HEAD: Atraumatic/Normocephalic EYES: EOMI Sclera Clear ENT: MMM LUNGS: CTAB HEART: RRR No MRG S1S2 ABDOMEN: Soft nondistended and nontender Bowel sounds +. No guarding/r ebound/rigidity. EXTREMITIES: No CCE SKIN: Warm to touch LABS Laboratory Results - last 24 hr 07/19/20 07/19/20 07/20/20 17:06 21:25 06:28 WBC RBC Hgb Hct MCV MCH MCHC RDW Plt Count MPV Sodium Potassium Chloride Carbon Dioxide Anion Gap BUN Creatinine Est GFR (CKD-EPI)AfAm Est GFR (CKD-EPI)NonAf POC Glucometer 133 170 154 Random Glucose Calcium Phosphorus Magnesium 07/20/20 07/20/20 07/20/20 06:52 06:52 12:15 WBC 12.6 H RBC 4.36 Hgb 11.5 L Hct 36.0 MCV 82.7 MCH 26.3 MCHC 31.9 L RDW 16.0 H Plt Count 713 H MPV 7.1 L Sodium 138 Potassium 5.4 H Chloride 106 Carbon Dioxide 26 Anion Gap 7 L BUN 16.2 Creatinine 1.2 Est GFR (CKD-EPI)AfAm 72.09 Est GFR (CKD-EPI)NonAf 62.20 POC Glucometer 127 Random Glucose 148 H Calcium 9.1 Phosphorus 3.2 Magnesium 2.1 07/20/20 13:16 WBC RBC Hgb Hct MCV MCH MCHC RDW Plt Count MPV Sodium Potassium 4.8 Chloride Carbon Dioxide Anion Gap BUN Creatinine Est GFR (CKD-EPI)AfAm Est GFR (CKD-EPI)NonAf POC Glucometer Random Glucose Calcium Phosphorus Magnesium HOSPITAL COURSE: Date of Admission:07/06/20 Date of Discharge: 07/20/20 Discharge Summary Problems reviewed: Yes Reason For Visit: SEPSIS Current Active Problems WALI (acute kidney injury) (Acute) Abdominal distension (Acute) Constipation (Acute) Diarrhea (Acute) Sepsis (Acute) UTI (urinary tract infection) (Acute) Condition: Improved - Instructions Diet, Activity, Other Instructions: You presented to the hospital due to a bloodstream infection (Sepsis). You were treated with IV antibiotics. Some changes have been made to your medications. Please STOP taking Losartan. this medication may cause elevated potassium and your potassium was elevated during this admission. We also discontinued your Metoprolol. Your new medications: -Coreg 12.5 TWICE per day. You next dose would be this evening 07/20/2020. -Chlorthalidone 12.5 mg Daily. You had one dose today. Your next dose would be tomorrow 07/21. Please continue your Norvasc 10 mg Daily. Please follow up with your primary care doctor this week. You should undergo two blood tests (CBC and CMP) to assess your white blood cell and platelet counts as they have been elevated during your admission. You should also check your kidney function levels. There was a nodule that was incidentally found on your right lung. It is advised that you have a repeat Cat Scan of your chest within 3 months to follow this nodule up. Please return to the emergency department immediately if you begin to experience fever, chills, nausea/vomiting, shortness of breath, chest pain, lightheadedness, or any other abnormal symptoms. Referrals: Manohar Watt MD [Staff Physician] - Marvin Barrientos [Primary Care Provider] - 1 Week Disposition: VNS/HOME HEALTH CARE - Home Medications Comprehensive Discharge Medication List: Ambulatory Orders Amlodipine Besylate 10 mg PO DAILY 03/01/20 Aspirin 81 mg PO DAILY 03/01/20 Calcium Carbonate [Calcium] 500 mg PO DAILY 03/01/20 Cholecalciferol (Vitamin D3) [Vitamin D -] 400 unit PO DAILY 03/01/20 Metformin HCl [Glucophage] 500 mg PO BID 03/01/20 [place]-3 Fatty Acids/Fish Oil [Fish Oil 1,000 mg Capsule] 1 each PO DAILY 03/01/20 Simvastatin 20 mg PO HS 03/01/20 Tamsulosin HCl 0.4 mg PO DAILY 03/01/20 Dextrin [Fiber] 350 gm PO DAILY 07/04/20 Docusate Sodium [Colace] 100 mg PO DAILY 07/04/20 Carvedilol [Coreg -] 12.5 mg PO BID #60 tablet 07/20/20 Chlorthalidone [Hygroton -] 12.5 mg PO DAILY #30 tablet 07/20/20 - Discharge Referral Referred to [facility] Med P.C.: No ATTENDING PHYSICIAN STATEMENT I saw and evaluated the patient. I reviewed the resident's note and discussed the case with the resident. I agree with the resident's findings and plan as documented. SUBJECTIVE: OBJECTIVE: ASSESSMENT AND PLAN:
--- NOTE | 2020-07-20 15:01 | PN ---
Teaching Attending Note Name of Resident: Wei Lindsey ATTENDING PHYSICIAN STATEMENT I saw and evaluated the patient. I reviewed the resident's note and discussed the case with the resident. I agree with the resident's findings and plan as documented. Seen and examined at bedside. Patient found to be hyperkalemic this morning. Losartan discontinued. Metoprolol switched to Coreg, and chlorthalidone started. Patient given insulin and D50 and Kayexalate with improvement in potassium. Patient is medically cleared for discharge OBJECTIVE Last Vital Signs Temp Pulse Resp BP Pulse Ox 98.8 F 86 20 123/78 98 07/20/20 10:00 07/20/20 10:00 07/20/20 10:00 07/20/20 10:00 07/20/20 10:00 PE: per resident note Labs/Imaging: reviewed ASSESSMENT/PLAN 65-year-old male who presented 1 day after ureteroscopic laser lithotripsy and stent insertion for renal calculus with severe sepsis and WALI. Patient was found to have severe sepsis with bacteremia culture positive for Pseudomonas as a complication of lithotripsy and ureteral stent insertion. Patient was treated with Zosyn with improvement. Course was complicated by leukocytosis and thrombocytosis which developed after sepsis resolved. Imaging did not show any abscess or other source of infection. Patient was asymptomatic. Patient is medically cleared for discharge. He should follow-up with his PCP within 1 to 2 weeks for a repeat CBC and blood pressure check as well as a BMP.
[2020-07-20 15:42] VITALS: BP 125/79; PULSE 76
== END 2020-07-20 18:00 | disposition home health service (06) | DRG 862 ==
LOC: JER 11:57 → JERBED 19:18 → J8W 23:44
PROVIDERS: ADMIT Hospitalist; ATTEND Internal Medicine
DX: T81.40XA Infection following a procedure, unspecified, initial encounter (principal); A41.52 Sepsis due to Pseudomonas; R65.20 Severe sepsis without septic shock; K56.7 Ileus, unspecified; N10 Acute pyelonephritis; T83.592A Infection and inflammatory reaction due to indwelling ureteral stent, initial encounter; N17.9 Acute kidney failure, unspecified; I69.351 Hemiplegia and hemiparesis following cerebral infarction affecting right dominant side; N13.30 Unspecified hydronephrosis; N39.0 Urinary tract infection, site not specified; E11.9 Type 2 diabetes mellitus without complications; D72.829 Elevated white blood cell count, unspecified; R00.0 Tachycardia, unspecified; K59.00 Constipation, unspecified; R19.7 Diarrhea, unspecified; T81.44XA Sepsis following a procedure, initial encounter; R91.1 Solitary pulmonary nodule; Y83.9 Surgical procedure, unspecified as the cause of abnormal reaction of the patient, or of later complication, without mention of misadventure at the time of the procedure
CPT/HCPCS: 36415; 70450-TC; 71045-TC-FY; 71250-TC; 72125-TC; 74018-TC-FY; 74176-TC; 74177-TC; 76775-TC; 80048; 80053; 81003; 82272; 82550; 82553; 82962; 83605; 83735; 84100; 84132; 84484; 85025; 85027; 85610; 85730; 86140; 87040; 87086; 87186; 87324; 87449; 93005; 93010; 97116-GP; 97162-GP; 99285-25; J0131; J1644; Q9967; U0003